=== PATIENT | female | born 1950 | race Caucasian/White ===

== ENCOUNTER 2020-02-25 18:37 | Emergency (ER) | payer MEDICARE, MEDICAID, SELFPAY ==
--- NOTE | ~2020-02-25 | XR_ITS ---
EXAMINATION: XR chest 1V portable DATE: 02/25/2020 19:22 INDICATION: Shortness of breath. Right-sided chest pain. TECHNIQUE: frontal view of the chest was obtained. COMPARISON: None FINDINGS: The lungs are clear with no focal airspace opacities, pulmonary edema, pleural effusion or pneumothor ax. Borderline heart size conifer AP technique. Dual lead pacemaker seen with leads projecting over t he expected locations of the right atrium and right ventricle. Visualized bones and soft tissues ar e unremarkable. IMPRESSION: 1. Borderline heart size. No other acute cardiopulmonary disease. Reviewed, dictated and finalized at location A. DUMPING EQUIPMENT OPERATOR
[2020-02-25 18:39] VITALS: BP 126/94; PULSE 100; RESP 16; TEMP 36.7; O2SAT 96
--- NOTE | 2020-02-25 18:47 | ECG_ITS ---
Measurements Intervals [place] Rate: 101 P: 47 CA: 167 QRS: -1 QRSD: 94 T: 47 QT: 343 QTc: 446 Interpretive Statements SINUS TACHYCARDIA INFERIOR INFARCT, AGE INDETERMINATE ABNORMAL ECG Electronically Signed On 02-26-2020 6:48:31 BIOLOGY TUTOR by Tello Baker D.O.
[2020-02-25 19:00] VITALS: BP 126/94; PULSE 102; RESP 17; O2SAT 97
[2020-02-25 19:13] LABS: Basophils Absolute Auto 0.1 K/mm3 (0.0-0.1); Basophils Percent Auto 0.4 % (0.2-1.2); Eosinophils Absolute Auto 0.5 K/mm3 (0-0.3); Eosinophils Percent Auto 3.4 % (0-4.4); Hematocrit 44.4 % (37.0-47.0); Hemoglobin 14.1 g/dL (12.0-15.0); Immature Granulocyte Absolute 0.04 K/mm3 (0.00-0.031); Immature Granulocyte Percent A 0.3 % (0-0.5); Lymphocytes Absolute Auto 3.11 K/mm3 (0.9-3.2); Lymphocytes Percent Auto 21.9 % (18.3-44.2); Mean Corpuscular HGB Conc 31.8 g/dl (32-36); Mean Corpuscular Hemoglobin 29.3 pg (26-34); Mean Corpuscular Volume 92.1 fl (80-100); Mean Platelet Volume 10.7 fl (7.4-10.4); Monocytes Percent Auto 7.1 % (2.6-8.5); Neutrophils Absolute Auto 9.5 K/mm3 (1.3-6.7); Neutrophils Percent Auto 66.9 % (45.5-73.1); Platelet Count Result 272 k/mm3 (150-375); Red Blood Count 4.82 M/mm3 (4.2-5.4); Red Cell Distribution Width 12.6 % (11.5-14.5); White Blood Count 14.2 K/mm3 (4.5-10.0)
[2020-02-25 19:21] LABS: INR 0.9; Prothrombin Time 12.8 Seconds (11.1-14.7)
[2020-02-25 19:56] LABS: NT Pro B Type Natriuretic Pept 65 PG/ML (5-100)
[2020-02-25 20:13] LABS: Alanine Aminotransferase 19 U/L (4-35); Alkaline Phosphatase 149 U/L (38-126); Anion Gap 14 mmol/L (8-16); Aspartate Amino Transferase 51 U/L (14-36); Blood Urea Nitrogen 22 mg/dL (7-17); Calcium 9.4 mg/dL (8.4-10.2); Carbon Dioxide 16 mmol/L (22-30); Chloride 110 mmol/L (98-107); Estimated CRCL calculation 60 ml/min; Estimated Glomerular Filt Rate > 60; Glucose 183 mg/dL (65-105); Potassium 3.9 mmol/L (3.4-5.0); Sodium 140 mmol/L (137-145)
[2020-02-25 20:15] VITALS: PULSE 100; RESP 18; O2SAT 94
[2020-02-25 20:27] LABS: Troponin I < 0.012 ng/mL (0.000-0.034)
--- NOTE | 2020-02-25 20:56 | ED.CHESTPAIN ---
HPI - Chest Pain General Chief Complaint: Chest Pain Stated Complaint: right side chest pain Time Seen by Provider: 02/25/20 18:43 Source: patient Mode of arrival: EMS Limitations: no limitations History of Present Illness HPI narrative: 69-year-old with a history of hypertension, diabetes, anxiety disorder here with complaints of chest pain started few hours ago after eating her hamburger and Far[place] fries. Patient states that she had weird pain in the chest which radiated to left side of her jaw. She also complains of some shortness of breath. She presently denies any pain MD complaint: chest pain Onset (ago): hour(s) (1) Prior episodes: No Onset: during rest Pain location: right chest Pain radiation: jaw/teeth Severity: moderate Quality: heaviness Relieving factors: nothing Exacerbating factors: nothing Risk Factors Coronary artery disease risk factors: none, diabetes and hypertension Thoracic aortic dissection risk factors: none Related Data Home Medications Medication Instructions Recorded Confirmed atorvastatin 40 mg PO DAILY 02/25/20 empagliflozin [Jardiance] 10 mg PO DAILY 02/25/20 ezetimibe 10 mg PO DAILY 02/25/20 insulin glargine [Basaglar KwikPen 45 unit SUBCUT HS 02/25/20 U-100 Insulin] lisinopril 20 mg PO DAILY 02/25/20 metformin 500 mg PO BID 02/25/20 omeprazole 20 mg PO DAILY 02/25/20 prednisone 5 mg PO DAILY 02/25/20 Allergies Allergy/AdvReac Type Severity Reaction Status Date / Time codeine Allergy Other Verified 02/25/20 18:51 dextromethorphan Allergy Other Verified 02/25/20 18:51 latex Allergy Rash Verified 02/25/20 18:51 Review of Systems Review of Systems: All systems reviewed & are unremarkable except as noted in HPI and below Constitutional: Constitutional: Reports no additional constitutional complaints Eyes: Eyes: Reports no additional eye complaints ENT: Reports system reviewed and no additional complaints, except as documented Cardiovascular: Cardiovascular: Reports as per HPI Respiratory: Respiratory: Reports as per HPI Gastrointestinal: Gastrointestinal: Reports no additional gastrointestinal complaints Musculoskeletal: Musculoskeletal: Reports no additional musculoskeletal complaints Neurologic: Reports system reviewed and no additional complaints, except as documented PMFSH Social History Social History Gender identity (if verbalized by the patient): Female Exam Narrative: Exam Narrative: GENERAL: Well-appearing, well-nourished, and in no acute distress. HEAD: Normocephalic, atraumatic. EYES: PERRLA and EOMI. NECK: Supple. CHEST: Clear to auscultation. No respiratory distress. HEART: Regular rate and rhythm. No murmur heard. Normal peripheral pulses. ABDOMEN: Soft, nontender, nondistended, normal active bowel sounds. EXTREMITIES: Normal range of motion. No edema. SKIN: Warm, dry, no rash. NEURO: No focal deficits. Alert and oriented x3. PSYCH: Normal mood and affect. Course Course Emergency Course: Patient remained asymptomatic throughout her stay. Discussed labs and EKG findings with the patient and the family. I also discussed with Dr. Paul's nurse practitioner Lucy, they will follow-up in her office tomorrow. Patient does feel comfortable going home Vital Signs Vital signs: Vital Signs Temperature 36.7 C 02/25/20 18:39 Pulse Rate 100 02/25/20 18:39 Respiratory Rate 16 02/25/20 18:39 Blood Pressure 126/94 H 02/25/20 18:39 Pulse Oximetry 96 02/25/20 18:39 Temperature 36.7 C 02/25/20 18:39 Pulse Rate 100 02/25/20 18:39 Respiratory Rate 16 02/25/20 18:39 Blood Pressure 126/94 H 02/25/20 18:39 Pulse Oximetry 96 02/25/20 18:39 MDM - Chest Pain Differential Diagnosis Differential diagnosis: Likely unstable angina pectoris, atypical chest pain and chest pain Lab Data Result diagrams: 02/25/20 19:07 02/25/20 19:07 Labs: Lab Results 02/25/20 02/25/20 02/25/20 Jake
[2020-02-25 21:01] VITALS: BP 115/62; PULSE 92; RESP 14; O2SAT 96
== END 2020-02-25 21:18 | disposition home or self-care (01) ==
PROVIDERS: Emergency Provider Family Medicine
DX: R07.9 Chest pain, unspecified (principal); R00.0 Tachycardia, unspecified; I10 Essential (primary) hypertension; E11.9 Type 2 diabetes mellitus without complications; Z79.4 Long term (current) use of insulin; F41.9 Anxiety disorder, unspecified; R06.02 Shortness of breath
CPT/HCPCS: 36415; 71045; 80053; 83880; 84484; 85025; 85610; 93005; 99284

== ENCOUNTER 2021-07-20 14:45 | Outpatient (RCR) | payer OTHER, SELFPAY ==
--- NOTE | 2021-06-21 14:31 | PTOPEVAL ---
PHYSICAL THERAPY INITIAL EVALUATION. Thank you for referring Shawnee Mon to [facility].? The patient is scheduled to be seen for therapy? 2x/week for 4 weeks. Please review, sign, date and return this plan of care DAYNA. I agree with and certify that the following plan of care is medically necessary. Referring Physician Date Attending Provider: Coco Butcher, PA *PT Outpatient Evaluation Start: 06/21/21 Evaluation Information Diagnosis bilateral knee pain Onset chronic Additional Evaluation Detail Pt ambulates into the clinic today with a shuffling gait pattern, decreased foot clearance, and decreased gait speed. Subjective Information Pt states for the last couple Query Text:As Reported By Patient/ of years she has had Family difficultly getting in and out of her chair and walking on uneven surfaces and climbing stairs. Now she has difficultly walking on level and smooth surfaces without her knees giving out on her. Her left knee started first and is worse, now the R knee is bothering her. She declines any falls in the last 6 months. She ordered a walker and is waiting to receive it. Pain Assessment Self Report Pain Assessment Bilateral Knee(s) Reported Pain Level 0 Lowest Pain Intensity 0 Greatest Pain Intensity 2 Pain Aggravating Factors Prolonged Position,Stair Climbing,Walking,Weight Bearing/Standing Lower Extremity Range of Motion Gross Lower Extremity Range of Motion R knee 0-6-115 Comments L knee 0-8-120 Lower Extremity Muscle Strength Testing Gross Lower Extremity Strength B hip flexion 4/5 B knee flexion 3+/5 B knee extension 4-/5 B ankles df/pf 4/5 B glute med 2/5 - unable to perform without hip flexion, unable to hold test position Muscle Length Testing Two-Joint Hip Flexor Shortened Muscles Short (R) Rectus Femoris,Short (L) Rectus Femoris Balance Assessment Time Up Go (TUG) Timed Up and Go Test (TUG) (Seconds) 13 Assistive Devices None 5 Time Sit to Stand Time in Seconds 21 5 Time Sit to Stand Comments with the use of UEs, unable t
--- NOTE | 2021-07-04 13:28 | PCPTNOTE ---
Patient called & cancelled scheduled appointment this date, she gave no reason as to why.
--- NOTE | 2021-07-20 15:25 | PTOPEVAL ---
PHYSICAL THERAPY PROGRESS REPORT AND DISCHARGE SUMMARY. Thank you for referring Shawnee Mon to [facility].? The patient is to be discharged from skilled physical therapy services are this time. Please review, sign, date and return this plan of care DAYNA. I agree with and certify that the following plan of care is medically necessary. Referring Physician Date Attending Provider: Coco Butcher, PA Evaluation Information Diagnosis bilateral knee pain Onset chronic Subjective Information Pt states she feels like Query Text:As Reported By Patient/ [employer]rpay is helping. She states Family she feels her legs, particularly her knees are getting stronger. She states she has less difficultly getting out of a chair. Pt states she walks 10 mins at a time 3-4 times a day. Pain Assessment Pain Score Pain Score 0: Self Report Lower Extremity Range of Motion Gross Lower Extremity Range of Motion R knee 0-6-115 Comments L knee 0-8-122 Lower Extremity Muscle Strength Testing Gross Lower Extremity Strength B hip flexion 4+/5 B knee flexion 4/5 B knee extension 4/5 B ankles df/pf 4/5 B glute med 3/5 B hip extension 3/5 Muscle Length Testing Two-Joint Hip Flexor Shortened Muscles Short (R) Rectus Femoris,Short (L) Rectus Femoris Balance Assessment Time Up Go (TUG) Timed Up and Go Test (TUG) (Seconds) 11 Assistive Devices None Comments Initially: 13s 07/20/21: 11s 5 Time Sit to Stand Time in Seconds 19 5 Time Sit to Stand Comments Initially: 21s with the use of Query Text:Normative Data: If Greater UEs, unable to complete Than 15 Seconds, 74% Increase Risk for without the use of UEs Recurrent Falls 07/20/21: 19s without the use of UEs Gait Assessment Other Gait Observations Demonstrates normal gait speed and good foot clearance. 2 Minute Walk Total Distance Walked (feet) 440 2 Minute Walk Gait Speed Score (feet/sec) 3.66 second) 2 Minute Walk Test Comments Initially: 390ft (3.25ft/sec) 07/20/21: 440ft (3.66ft/sec) Stair Climbing Assessment Stair Climbing Comments Requires the use of B railings in order to safety complete. PT Clinical Summary Shawnee presents to therapy today for her progress report following 6 visits of therapy.
== END 2021-07-21 12:54 | disposition home or self-care (01) ==
LOC: ANHPT 14:45
PROVIDERS: PCP Physician Assistant; Visit Provider Physician Assistant
DX: M25.561 Pain in right knee (principal)
CPT/HCPCS: 97110; 97112; 97140; 97161; 97530

== ENCOUNTER 2022-01-23 22:26 | Inpatient (IN) | payer OTHER, SELFPAY ==
--- NOTE | ~2022-01-23 | XR_ITS ---
EXAMINATION: XR abdomen/kub 1V DATE: 01/24/2022 11:59 INDICATION: Constipation. TECHNIQUE: A supine view of the abdomen was obtained. COMPARISON: None. FINDINGS: There are no dilated loops of bowel. There is a moderate volume of stool in the colon. IMPRESSION: 1. Normal bowel gas pattern. Reviewed, dictated and finalized at location A.
--- NOTE | ~2022-01-23 | CT_ITS ---
EXAMINATION: CT brain wo con DATE: 01/23/2022 23:50 INDICATION: Altered mental status. TECHNIQUE: Computed tomography (CT) of the head was performed without intravenous contrast. The mA wa s adjusted according to patient size. Iterative reconstruction technique was employed. The dose-lengt h product was 681.00 mGy-cm. COMPARISON: None FINDINGS: There are scattered areas of low attenuation in the cerebral white matter, which is within normal limits for the patient's age. There is no intracranial hemorrhage, acute infarction, or abnorm al intracranial mass lesion. The ventricles are normal in size. There is mucosal thickening and fluid in the paranasal sinuses. The orbits are normal. The mastoid air cells are normal. There is posterio r scalp soft tissue swelling. IMPRESSION: 1. Normal aging brain. Reviewed, dictated and finalized at location A. IMPRESSION: 1. Normal aging brain.
--- NOTE | ~2022-01-23 | CT_ITS ---
EXAMINATION: CT brain wo con DATE: 01/24/2022 21:59 INDICATION: change in LOC . TECHNIQUE: Computed tomography (CT) of the head was performed without intravenous contrast. The mA wa s adjusted according to patient size. Iterative reconstruction technique was employed. The dose-lengt h product was 681.00 mGy-cm. COMPARISON: 01/23/2022 FINDINGS: No acute intracranial hemorrhage or extra-axial fluid collection. No hydrocephalus, mass, or herniation. No acute ischemic infarct. Unremarkable dural venous sinus attenuation. No acute osseous abnormality. Posterior scalp and neck subcutaneous edema. Air-fluid levels in the bilateral maxillary sinuses, ethmoid air cells, and sphenoid sinus. The remai reji aerated spaces are clear. Mild atrophy and chronic white matter change. Atherosclerotic intracranial calcification. IMPRESSION: No acute intracranial process. Acute sinusitis. Reviewed, dictated and finalized at location K.
--- NOTE | ~2022-01-23 | XR_ITS ---
EXAMINATION: XR barium swallow modified DATE: 01/28/2022 10:50 INDICATION: Dysphagia. Rule out silent aspiration. TECHNIQUE: The patient was given barium-containing material of multiple consistencies to swallow by jovan granados speech pathologist while I performed fluoroscopy. Dose-area product was 1.398 Gy-cm2. 2.5 minutes fluoroscopy time FINDINGS: Oral Stage: Reduced labial seal and lip tension Reduced lingual movement Pharyngeal Phase: Reduced laryngeal elevation and adduction Reduced tongue base retraction and pharyngeal squeeze Vallecular, perform sinus and pharyngeal residue Laryngeal penetration Cervical/Esophageal Stage: Within functional limits IMPRESSION: Modified esophagram findings as above. Please refer to the speech therapy [facility]. Reviewed, dictated and finalized at Location A. Reviewed, dictated and finalized at location A. FACTURING OPERATOR IMPRESSION: Modified esophagram findings as above. Please refer to the speech t herapy report for specific recommendations.
--- NOTE | ~2022-01-23 | XR_ITS ---
EXAMINATION: XR chest 1V portable DATE: 01/24/2022 04:58 INDICATION: COVID-19 pneumonia. TECHNIQUE: A single frontal view of the chest was obtained. COMPARISON: Chest single view 02/25/2020 FINDINGS: A skin fold overlies right hemithorax. There are mild airspace opacities in the mid and low er lung zones. No pleural effusion or pneumothorax. Cardiomegaly is noted. There is a left chest wall pacer with leads in the right atrium and right ventricle. IMPRESSION: 1. Mild airspace opacities in the mid and lower lung zones, consistent with atelectasis versus pneumo stacy. 2. Cardiomegaly. Reviewed, dictated and finalized at location A. IMPRESSION: 1. Mild airspace opacities in the mid and lower lung zones, consistent with ate lectasis versus pneumonia. 2. Cardiomegaly.
--- NOTE | ~2022-01-23 | XR_ITS ---
EXAMINATION: XR hip LT 2V w AP pelvis DATE: 01/24/2022 02:24 INDICATION: Hip pain. TECHNIQUE: An anteroposterior view of the pelvis and 2 views of left hip were obtained. COMPARISON: None. FINDINGS: There is lumbar dextrocurvature and moderate spondylosis. No fracture. There is mild osteoa rthritis of the hips. IMPRESSION: 1. Mild osteoarthritis of the hips. Reviewed, dictated and finalized at location A.
[2022-01-23 22:24] VITALS: BP 135/119; PULSE 172; RESP 27; TEMP 36.6
--- NOTE | 2022-01-23 22:29 | ECG_ITS ---
Measurements Intervals [place] Rate: 173 P: [place]: 0 QRS: 15 QRSD: 124 T: -21 QT: 272 QTc: 462 Interpretive Statements ATRIAL FLUTTER/TACHYCARDIA WITH RAPID VENTRICULAR RESPONSE BASELINE ARTIFACT- I, II, III, AVR, AVL, AVF, V1-V3 ABNORMAL ECG COMPARED TO ECG 02/25/2020 18:42:45 ATRIAL FLUTTER/TACHYCARDIA WITH RAPID VENTRICULAR RESPONSE NOW PRESENT Electronically Signed On 01-24-2022 12:54:04 CDT by Tello Baker D.O.
[2022-01-23] MEDS: SODIUM CHLORIDE 0.9% IV 2,200 ML/1,000 ML BAG 999 ML IV CONT ×2 (23:08→23:46)
[2022-01-23 23:10] LABS: Basophils Percent Auto 0.2 % (0.2-1.2); Hematocrit 47.5 % (37.0-47.0); Hemoglobin 15.4 g/dL (12.0-15.0); Immature Granulocyte Absolute 0.07 K/mm3 (0.00-0.031); Immature Granulocyte Percent A 0.5 % (0-0.5); Lymphocytes Absolute Auto 0.77 K/mm3 (0.9-3.2); Lymphocytes Percent Auto 5.4 % (18.3-44.2); Mean Corpuscular HGB Conc 32.4 g/dl (32-36); Mean Corpuscular Hemoglobin 29.1 pg (26-34); Mean Corpuscular Volume 89.8 fl (80-100); Monocytes Absolute Auto 1.1 K/mm3 (0.1-0.6); Monocytes Percent Auto 7.9 % (2.6-8.5); Neutrophils Absolute Auto 12.3 K/mm3 (1.3-6.7); Platelet Count Result 223 k/mm3 (150-375); Red Blood Count 5.29 M/mm3 (4.2-5.4); Red Cell Distribution Width 14.2 % (11.5-14.5); White Blood Count 14.3 K/mm3 (4.5-10.0)
[2022-01-23 23:21] LABS: Lactic Acid Reflex 2.8 mmol/L (0.7-2.0)
[2022-01-23 23:24] LABS: Alanine Aminotransferase 142 U/L (6-35); Albumin Level 3.9 g/dL (3.5-5.1); Alkaline Phosphatase 91 U/L (38-126); Anion Gap 20 mmol/L (8-16); Aspartate Amino Transferase 465 U/L (14-36); Blood Urea Nitrogen 54 mg/dL (7-17); Calcium 8.6 mg/dL (8.4-10.2); Carbon Dioxide 16 mmol/L (22-30); Chloride 103 mmol/L (98-107); Estimated CRCL calculation 29 ml/min; Estimated Glomerular Filt Rate 34; Glucose 202 mg/dL (65-110); Potassium 4.2 mmol/L (3.4-5.0); Sodium 139 mmol/L (137-145)
[2022-01-23 23:34] LABS: INR 1.1; Prothrombin Time 13.3 Seconds (11.1-14.7)
[2022-01-23 23:35] LABS: Partial Thromboplastin Time 27.4 SECONDS (22.3-36.8)
[2022-01-23 23:36] LABS: CRP 21.9 mg/dL (<1.0); Troponin I 0.659 ng/mL (0.000-0.034)
[2022-01-23 23:51] VITALS: PULSE 169; RESP 25
[2022-01-23 23:57] LABS: Creatine Kinase 14274 U/L (30-135)
[2022-01-24] VITALS (62 sets, daily range): BP systolic 82–147; BP diastolic 26–90; PULSE 92–170; RESP 21–33; TEMP 37.1–39.1; O2SAT 83–99; BMI 24.5
--- NOTE | 2022-01-24 | ECHO_ITS ---
Patient Info Name: Shawnee Mon Age: 71 years : 1950 Gender: Female Ht: 66 in Wt: 158 lbs BSA: 1.84 m2 HR: 118 bpm BP: 115 / 67 mmHg Heart Rhythm: Tachycardia Exam Date: 01/24/2022 11:19 AM Exam Location: [facility] Patient Status: Inpatient Admit Date: 01/24/2022 Staff Ordering Physician: Jose Osborne MD [employer] Car[employer] Operator: Vidal Kang, ROMANCS, RT Attending Provider: Jose Osborne MD Referring Physician: India SERRANO; Exam Type: CA echo doppler color flow Study Info Indications I50.9 - Heart failure, unspecified Complete two-dimensional, color flow and Doppler transthoracic echocardiogram is performed. Summary 1. Complete two-dimensional, color flow and Doppler transthoracic echocardiogram is performed. 2. Left ventricular systolic function is hyperdynamic, estimated at >70%. 3. There is mildly increased left ventricular wall thickness. 4. Right ventricular systolic function is normal. 5. There is mild tricuspid valve regurgitation. Left Ventricle Left ventricular chamber dimension is normal. Left ventricular systolic function is hyperdynamic, estimated at >70%. There is mildly increased left ventricular wall thickness. Right Ventricle Right ventricular chamber dimension is normal. Right ventricular systolic function is normal. Left Atria Left atrial chamber dimension is normal. Right Atria Right atrial chamber dimension is normal. Atrial Septum Intact interatrial septum visualized by color flow imaging. Aortic Valve The aortic valve is probable trileaflet. There is mild aortic valve sclerosis. There is no aortic valve stenosis. There is no aortic valve regurgitation. Pulmonic Valve The pulmonic valve is not well visualized. Mitral Valve The mitral valve has normal leaflets. There is no mitral valve stenosis. There is trace mitral valve regurgitation. Tricuspid Valve The tricuspid valve leaflets are normal. There is no significant tricuspid valve stenosis. There is mild tricuspid valve regurgitation. Pericardium/Pleural There is no pericardial effusion. Inferior Vena Cava Dilated inferior vena cava with >50% collapse upon inspiration consistent with elevated right atrial pressure, 8 mmHg. Aorta The aortic root size at the sinus of Valsalva is normal. Left Ventricular Outflow Tract Name Value Normal LVOT 2D LVOT Diameter 1.9 cm LVOT Doppler LVOT Peak Gradient 4 mmHg LVOT Mean Gradient 2 mmHg LVOT VTI 19 cm LVOT VTI/AV VTI Ratio 0.7 LVOT Stroke Volume 53 ml LVOT CO 3.4 l/min LVOT CI 1.9 l/min/m2 Mitral Valve Name Value Normal MV Doppler MV Decel [place]
[2022-01-24 00:10] LABS: Bacteria Urine Trace /hpf; Mucus Urine Rare /lpf; RBC Urine 0-2 /hpf (0-2); WBC Urine 0-3 /hpf
[2022-01-24 00:19] LABS: Add Urine Microscopic? YES; Appearance Urine Clear (Clear); Bilirubin Urine 2+ (Negative); Blood Urine 3+ (Negative); Color Urine Yellow (Yellow); Glucose Urine UA 2+ mg/dL (Negative); Ketones Urine 3+ mg/dL (Negative); Leukocyte Esterase Ur Negative LEU/UL (Negative); Nitrate Urine Negative (Negative); Protein Urine 3+ mg/dL (Negative); Specific Grav Ur >= 1.030 (1.001-1.035); Urobilinogen Urine 0.2 mg/dL (<2.0)
[2022-01-24 00:48] LABS: Influenza A QL RT-PCR Negative (Negative); Influenza B QL RT-PCR Negative (Negative); SARS-CoV-2 RNA PCR Positive
[2022-01-24] MEDS: SODIUM CHLORIDE 0.9% IV 2,200 ML/1,000 ML BAG 999 ML IV CONT (01:00)
[2022-01-24] MEDS: SODIUM CHLORIDE 0.9% IV 1,000 ML 999 ML IV CONT ×2 (01:00→02:29)
--- NOTE | 2022-01-24 01:17 | ED.WEAKNESS ---
HPI - Weakness General Chief complaint: Weakness Stated complaint: ams on ground since saturday, l sided hip pain Time Seen by Provider: 01/23/22 22:33 History of Present Illness HPI Narrative: Patient is a 71-year-old female who presents to the ER with weakness. Patient fell 5 days ago and has been laying on the floor since then. Son called for wellness check and she was found. Patient is extremely weak but is technically oriented x4. She is unsure why she fell. Reports that may be related to sinus congestion. She is reporting no pain to me but reported pain to the left hip to someone else. Due to patient's weakness she has difficulty participating in history taking. Related Data Home Medications Medication Instructions Recorded Confirmed atorvastatin 40 mg tablet 40 mg PO DAILY 02/25/20 empagliflozin 10 mg tablet 10 mg PO DAILY 02/25/20 (Jardiance) ezetimibe 10 mg tablet 10 mg PO DAILY 02/25/20 insulin glargine 100 unit/mL (3 45 unit subcut HS 02/25/20 mL) subcutaneous pen (Basaglar KwikPen U-100 Insulin) lisinopril 20 mg tablet 20 mg PO DAILY 02/25/20 metformin 500 mg tablet 500 mg PO BID 02/25/20 omeprazole 20 mg capsule,delayed 20 mg PO DAILY 02/25/20 release prednisone 5 mg tablet 5 mg PO DAILY 02/25/20 Allergies Allergy/AdvReac Type Severity Reaction Status Date / Time codeine Allergy Other Verified 02/25/20 18:51 dextromethorphan Allergy Other Verified 02/25/20 18:51 latex Allergy Rash Verified 02/25/20 18:51 Review of Systems Review of Systems: ROS unobtainable: Yes unobtainable due to medical condition PMFSH Past Medical History Medical History (Updated 01/24/22 @ 02:13 by Artie Bowen MD) Diabetes GERD (gastroesophageal reflux disease) Hyperlipidemia Hypertension Surgical History Surgical History (Updated 01/24/22 @ 02:08 by Artie Bowen MD) History of permanent cardiac pacemaker placement Social History Social History Gender identity (if verbalized by the patient): Female Exam Narrative: GENERAL: Ill-appearing, well-nourished, and in no acute distress. HEAD: Normocephalic, atraumatic. EYES: PERRL and EOMI. ENT: Dry mucous membranes. CHEST: Clear to auscultation. No respiratory distress. HEART: Tachycardic and irregular regular. Normal peripheral pulses. ABDOMEN: Soft, nontender, nondistended. EXTREMITIES: Normal range of motion. No edema. SKIN: Warm, dry, poor skin turgor, no rash. NEURO: Alert and oriented x3. Course Course Emergency Course: Admit to hospitalist service. Patient aggressively hydrated with 3 L IV fluid. Blood pressure then normalized and so small dose of diltiazem given to help with rapid heart rate. Patient does appear to be in A. fib with RVR. Blood pressure then dropped again so we will give additional fluid bolus. Patient appears very dry clinically and on lab work. Will need aggressive fluid resuscitation due to rhabdomyolysis. Patient will be started on heparin due to elevated troponin. Hospitalist service will decide how best to treat patient's COVID-19. Vital Signs Vital signs: Vital Signs Temperature 97.8 F 01/23/22 22:24 Pulse Rate 172 H 01/23/22 22:24 Respiratory Rate 27 H 01/23/22 22:24 Blood Pressure 135/119 H 01/23/22 22:24 Temperature 97.8 F 01/23/22 22:24 Pulse Rate 171 H 01/24/22 03:52 Respiratory Rate 25 H 01/24/22 03:45 Blood Pressure 122/73 01/24/22 03:52 Pulse Oximetry 92 01/24/22 03:45 Oxygen Delivery Nasal Cannula 01/24/22 02:10 Oxygen Flow Rate 2 01/24/22 02:10 MDM - Weakness Lab Data Result diagrams: 01/23/22 23:03 01/23/22 23:03 Labs: Lab Results 01/23/22 01/23/22 01/23/22 Range/Units 23:03 23:03 23:03 WBC 14.3 H (4.5-10.0) K/mm3 RBC 5.29 (4.2-5.4) M/mm3 Hgb 15.4 H (12.0-15.0) g/dL Hct 47.5 H (37.0-47.0) % MCV 89.8 (80-100) fl MCH 29.1 (26-34) pg MCHC 32.4 (32-36) g/dl
[2022-01-24] MEDS: dilTIAZem HCl INJ 25 MG/5 ML VIAL 10 MG IV PUSH (01:38)
[2022-01-24] MEDS: HEPARIN SOD/D5W 100 UNITS/ML 25,000 UNITS/250 ML BAG 8 UNITS IV CONT (02:00)
[2022-01-24] MEDS: HEPARIN SODIUM 5,000 UNITS/ML VIAL 4000 UNITS IV PUSH (02:00)
[2022-01-24 02:08] LABS: Reflex Lactic Acid Yes or No Add Lactic
--- NOTE | 2022-01-24 03:05 | PC.NURSE ---
Assumed pt care from MAURICE Espinoza
--- NOTE | 2022-01-24 04:09 | PM.IMHP ---
H&P: HPI History of Present Illness Date/Time: 01/24/22 04:09 Chief Complaint: fall Narrative: This is a 71-year-old female with past medical history significant for hypertension, type 2 diabetes mellitus, GERD, dyslipidemia. Patient was found down after a well checkup can not give history she was brought to emergency room for evaluation last time H she was seen and her normal was Saturday. preliminary workup was significant for elevated CPK at 14,000, troponin 0.689, creatinine 1.5 BUN 54 a COVID test was positive. Patient also found to be tachycardia. Patient has been admitted for further evaluation management and treatment. Review of Systems Review of Systems: ROS unobtainable: Yes unobtainable due to mental status ( Obtundation, lethargy) PMFSH Past Medical History Medical History (Updated 01/24/22 @ 04:45 by Jose Osborne MD) Diabetes GERD (gastroesophageal reflux disease) Hyperlipidemia Hypertension Surgical History Surgical History (Updated 01/24/22 @ 02:08 by Artie Bowen MD) History of permanent cardiac pacemaker placement Social History Social History Gender identity (if verbalized by the patient): Female Meds Home Medications and Allergies Home Medications Medication Instructions Recorded Confirmed Type atorvastatin 40 mg tablet 40 mg PO DAILY 02/25/20 History empagliflozin 10 mg tablet 10 mg PO DAILY 02/25/20 History (Jardiance) ezetimibe 10 mg tablet 10 mg PO DAILY 02/25/20 History insulin glargine 100 unit/mL (3 45 unit subcut HS 02/25/20 History mL) subcutaneous pen (Basaglar KwikPen U-100 Insulin) lisinopril 20 mg tablet 20 mg PO DAILY 02/25/20 History metformin 500 mg tablet 500 mg PO BID 02/25/20 History omeprazole 20 mg capsule,delayed 20 mg PO DAILY 02/25/20 History release prednisone 5 mg tablet 5 mg PO DAILY 02/25/20 History Allergies Allergy/AdvReac Type Severity Reaction Status Date / Time codeine Allergy Other Verified 02/25/20 18:51 dextromethorphan Allergy Other Verified 02/25/20 18:51 latex Allergy Rash Verified 02/25/20 18:51 Vital Signs Vital Signs - 24 hr 01/23/22 22:24 01/23/22 23:51 01/24/22 00:00 Temperature 97.8 F Pulse Rate 172 H 169 H 159 H Respiratory Rate 27 H 25 H 26 H Blood Pressure 135/119 H Pulse Oximetry Oxygen Delivery Oxygen Flow Rate 01/24/22 00:02 01/24/22 00:03 01/24/22 00:15 Temperature Pulse Rate 170 H 170 H 167 H Respiratory Rate 26 H 27 H 21 H Blood Pressure 86/65 L Pulse Oximetry 94 Oxygen Delivery Oxygen Flow Rate 01/24/22 00:41 01/24/22 00:45 01/24/22 00:47 Temperature Pulse Rate 156 H 169 H 164 H Respiratory Rate 24 H 25 H 23 H Blood Pressure 104/38 L Pulse Oximetry Oxygen Delivery Oxygen Flow Rate 01/24/22 01:06 01/24/22 01:38 01/24/22 01:57 Temperature Pulse Rate 144 H 168 H 143 H Respiratory Rate 26 H Blood Pressure 91/57 L 131/52 L 90/26 L Pulse Oximetry 94 Oxygen Delivery Oxygen Flow Rate 01/24/22 02:10 01/24/22 00:48 01/24/22 01:23 Temperature Pulse Rate 170 H 162 H Respiratory Rate 27 H 25 H Blood Pressure Pulse Oximetry 94 Oxygen Delivery Nasal Cannula Oxygen Flow Rate 2 01/24/22 01:30 01/24/22 01:32 01/24/22 01:44 Temperature Pulse Rate 157 H Respiratory Rate 30 H 26 H 28 H Blood Pressure 131/52 L Pulse Oximetry 83 L Oxygen Delivery Oxygen Flow Rate 01/24/22 01:45 01/24/22 01:46 01/24/22 01:47 Temperature Pulse Rate 136 H 117 H 123 H Respiratory Rate 25 H 27 H 21 H Blood Pressure Pulse Oximetry 83 L Oxygen Delivery Oxygen Flow Rate 01/24/22 01:53 01/24/22 01:56 01/24/22 02:00 Temperature Pulse Rate Respiratory Rate 28 H 28 H 22 H Blood Pressure 90/26 L Pulse Oximetry 83 L Oxygen Delivery Oxygen Flow Rate 01/24/22 02:03 01/24/22 02:38 01/24/22 02:47 Temperature Pulse Rate 165 H Respiratory
[2022-01-24] MEDS: SODIUM CHLORIDE 0.9% IV 1,000 ML 200 ML IV CONT ×3 (04:23→12:44)
[2022-01-24 06:12] LABS: Troponin I 0.786 ng/mL (0.000-0.034)
[2022-01-24] MEDS: dilTIAZem HCl INJ 25 MG/5 ML VIAL 20 MG IV PUSH (07:04)
--- NOTE | 2022-01-24 07:19 | PC.NURSE ---
assumed care of pt from MAURICE Gill. Pt has 102.4 temp at this time. Called Hospitalist for orders. VORB for 1000 mg IV tylenol.
[2022-01-24 07:40] LABS: Lactic Acid Reflex 1.6 mmol/L (0.7-2.0)
[2022-01-24 07:59] LABS: Glucose Point of Care 119 mg/dl (65-105)
[2022-01-24] MEDS: dilTIAZem 100 MG/100 ML 100 MG/100 ML BAG IV CONT ×2 (11:00→22:55)
--- NOTE | 2022-01-24 11:54 | PC.NURSE ---
Spoke with Dr. Medrano. He would like cardiology paged to come and see pt. Also would like a KUB to check for blockage and then give fleet enema
--- NOTE | 2022-01-24 13:17 | PC.NURSE ---
Francoise Hayes discovered the Caridizem gtt that was started by night court magistrate FRANCOISE Gill was not mixed in the 100ml bag of NS that was infusing. Drip was stopped and a new gtt prepared and started at the starting rate of 5mg/ml. Dr. Medrano was notified and a medication incident was completed. Documentation of has been updated to reflect that the initial infusion of Cardizem was not given.
[2022-01-24 13:20] LABS: Hematocrit 42.4 % (37.0-47.0); Mean Corpuscular HGB Conc 30.7 g/dl (32-36); Mean Corpuscular Hemoglobin 29.1 pg (26-34); Mean Corpuscular Volume 94.9 fl (80-100); Mean Platelet Volume 11.8 fl (7.4-10.4); Platelet Count Result 175 k/mm3 (150-375); Red Blood Count 4.47 M/mm3 (4.2-5.4); Red Cell Distribution Width 14.4 % (11.5-14.5); White Blood Count 8.7 K/mm3 (4.5-10.0)
[2022-01-24 13:38] LABS: Glucose Point of Care 111 mg/dl (65-105)
[2022-01-24 13:43] LABS: Alanine Aminotransferase 118 U/L (6-35); Albumin Level 2.7 g/dL (3.5-5.1); Alkaline Phosphatase 48 U/L (38-126); Anion Gap 14 mmol/L (8-16); Aspartate Amino Transferase 358 U/L (14-36); Bilirubin,Total 1.3 mg/dL (0.2-1.3); Blood Urea Nitrogen 39 mg/dL (7-17); Calcium 6.9 mg/dL (8.4-10.2); Carbon Dioxide 11 mmol/L (22-30); Chloride 116 mmol/L (98-107); Estimated CRCL calculation 53 ml/min; Estimated Glomerular Filt Rate > 60; Glucose 122 mg/dL (65-110); Potassium 4.2 mmol/L (3.4-5.0); Sodium 141 mmol/L (137-145)
[2022-01-24] MEDS: cefTRIAXone 2 GM in SODIUM CHLORIDE 0.9% IV 100 ML 200 ML IVPB (15:19)
--- NOTE | 2022-01-24 16:36 | PM.CNCAR ---
Assessment and Plan Assessment and plan (1) Atrial flutter with rapid ventricular response: Code(s): I48.92 - Unspecified atrial flutter Status: Acute Assessment and Plan: Patient was put on Dilt drip. Currently remains in flutter, however, is rate controlled in the 90s. Would discontinue Dilt drip. At this time, it is unclear if patient is okay to swallow meds, is an aspiration risk right now. Therefore, would avoid PO meds until this is addressed. If patient goes back into RVR, then would do Amiodarone drip. If patient could tolerate oral meds, then would prefer starting Metoprolol. Continue Heparin drip for anticoagulation Echocardiogram 01/24 shows hyperdynamic function with LVEF >70, no significant valvular disease. (2) Elevated troponin: Code(s): R77.8 - Other specified abnormalities of plasma proteins Status: Acute Assessment and Plan: Minimally elevated and flat. In the setting of atrial flutter with RVR, rhabdo, COVID-19+. Does not appear to be ACS. Echocardiogram 01/24 shows hyperdynamic function with LVEF >70, no significant valvular disease, no regional wall motion abnormalities appreciated. (3) History of permanent cardiac pacemaker placement: Code(s): Z95.0 - Presence of cardiac pacemaker Status: Acute Assessment and Plan: Has a Biotronik device, interrogation order placed. History of Present Illness History of Present Illness Consult date/time: 01/24/22 16:36 Requesting physician: Sushma Medrano MD Consult reason: Other (Atrial flutter) Reason For Visit: Rhabdomyolysis,KALEN,NSTEMI,COVID Narrative: This is a 71-year-old female who presented to the ED after being found down. Patient reportedly fell down 5 days ago, and had been on the ground until she was found during a wellness check. Patient sees Dr. Lucio at [facility]. She apparently has a history of atrial fibrillation (not on anticoagulation at home), has a history of SSS s/p Biotronik pacemaker. Patient is currently not able to fully answer questions. She does state her name correctly, her date of correctly, and knows that she is in a hospital. She denies chest pain. However, cannot answer other questions. Initial ECG here showing atrial flutter with RVR, for which we are consulted. Review of Systems Review of Systems: ROS unobtainable: Yes unobtainable due to mental status PENDING SALE TO [facility] Past Medical History Medical History (Updated 01/24/22 @ 16:46 by Mabel Vitale MD) Diabetes GERD (gastroesophageal reflux disease) Hyperlipidemia Hypertension Surgical History Surgical History (Updated 01/24/22 @ 16:46 by Mabel Vitale MD) History of permanent cardiac pacemaker placement Social History Social History Gender identity (if verbalized by the patient): Female Meds Home Medications and Allergies Home Medications Medication Instructions Recorded Confirmed Type atorvastatin 40 mg tablet 40 mg PO DAILY 02/25/20 History empagliflozin 10 mg tablet 10 mg PO DAILY 02/25/20 History (Jardiance) ezetimibe 10 mg tablet 10 mg PO DAILY 02/25/20 History insulin glargine 100 unit/mL (3 45 unit subcut HS 02/25/20 History mL) subcutaneous pen (Basaglar KwikPen U-100 Insulin) metformin 500 mg tablet 500 mg PO BID 02/25/20 History omeprazole 20 mg capsule,delayed 20 mg PO DAILY 02/25/20 History release icosapent ethyl 1 gram capsule g PO 01/24/22 History (Vascepa) lisinopril 10 mg tablet mg 01/24/22 History semaglutide 0.25 mg or 0.5 mg (2 mg subcut 01/24/22 History mg/1.5 mL) subcutaneous pen injector (Ozempic) Allergies Allergy/AdvReac Type Severity Reaction Status Date / Time codeine Allergy Other Verified 01/24/22 14:27 dextromethorphan Allergy Other Verified 01/24/22 14:27 latex Allergy Rash Verified 01/24/22 14:27 Vital Signs Vital Signs - 24 hr 01/23/22 22:24 11
[2022-01-24 16:58] LABS: Glucose Point of Care 131 mg/dl (65-105)
[2022-01-24 17:01] LABS: Alveolar/Arterial O2 Gradient 185.1 mmHg; Base Excess ABG -10.2 mEq/l (+/-2.0); Fractional Inspired Oxygen 40 %; HCO3 ABG 13.9 mEq/l (22.0-26.0); Oxygen Content ABG 16.6 %vol (16.0-22.0); Oxygen Saturation ABG 93.5 % (95.0-100.0); PCO2 ABG 26.2 mmHg (35.0-45.0); PO2 FiO2 Ratio Arterial Blood 1.75 %; Total Hemoglobin 12.7 g/dL (12.0-18.0); pH ABG 7.342 (7.350-7.450)
[2022-01-24 17:04] LABS: Site Drawn RIGHT RADIAL
[2022-01-24 17:05] LABS: Device NASAL CANNULA; Modified Allen's Test Pass
[2022-01-24] MEDS: FUROSEMIDE INJ 40 MG/4 ML VIAL 20 MG IV PUSH ×2 (17:25→19:00)
--- NOTE | 2022-01-24 18:47 | PM.IMPN ---
Progress Note: A&P Assessment and Plan (1) COVID-19: Code(s): U07.1 - COVID-19 Status: Acute Assessment and Plan: admit to IMU supportive care consider adding antibacterial COVID 01/25/2022 interval history: patient is quite somnolent unable to provide review of symptoms or history, patient is positive for COVID-19 started on dexamethasone unable to start remdesivir as patient AST is 10 times higher than normal, upon arrival patient was found to atrial flutter and was started on Cardizem drip, patient rate is trending down seen by automotive instructor and further recommendation to follow, patient was found down by caregivers, not know how long patient was down however has developed rhabdomyolysis rhabdomyolysis upon arrival her CK level were above 8000 patient will vigorously hydrate emergency depart and was given 7 L of the fluid, patient shortness of breath patient was given IV Lasix 40 mg time and will monitor. patient remains clinically stable. (2) Fall: Code(s): W19.XXXA - Unspecified fall, initial encounter Status: Acute Assessment and Plan: bed rest (3) Rhabdomyolysis: Code(s): M62.82 - Rhabdomyolysis Status: Acute Assessment and Plan: IV fluids continue to monitor (4) Non-ST elevated myocardial infarction: Code(s): I21.4 - Non-ST elevation (NSTEMI) myocardial infarction Status: Acute Assessment and Plan: patient on heparin drip continue to monitor cardiology consult echocardiogram in a.m. trend troponins (5) KALEN (acute kidney injury): Code(s): N17.9 - Acute kidney failure, unspecified Status: Acute Assessment and Plan: likely to be pre renal azotemia receiving IV fluids continue to monitor (6) Atrial fibrillation with RVR: Code(s): I48.91 - Unspecified atrial fibrillation Status: Acute Assessment and Plan: on diltiazem drip continue to monitor (7) GERD (gastroesophageal reflux disease): Code(s): K21.9 - Gastro-esophageal reflux disease without esophagitis Status: Acute Assessment and Plan: PPI as needed Subjective Date/time seen: 01/24/22 18:47 HPI-Narrative: ?This is a 71-year-old female with past medical history significant for hypertension, type 2 diabetes mellitus, GERD, dyslipidemia.? Patient was found down after a well checkup can not give history she was brought to emergency room for evaluation last time H she was seen and her normal was Saturday. preliminary workup was significant for elevated CPK at 14,000, troponin 0.689, creatinine 1.5 BUN 54 a COVID test was positive.? Patient also found to be tachycardia.? Patient has been admitted for further evaluation management and treatment. 01/25/2022 interval history: patient is quite somnolent unable to provide review of symptoms or history, patient is positive for COVID-19 started on dexamethasone unable to start remdesivir as patient AST is 10 times higher than normal, upon arrival patient was found to atrial flutter and was started on Cardizem drip, patient rate is trending down seen by automotive instructor and further recommendation to follow, patient was found down by caregivers, not know how long patient was down however has developed rhabdomyolysis rhabdomyolysis upon arrival her CK level were above 8000 patient will vigorously hydrate emergency depart and was given 7 L of the fluid, patient shortness of breath patient was given IV Lasix 40 mg time and will monitor. patient remains clinically stable. Review of Systems Review of Systems: ROS unobtainable: Yes unobtainable due to mental status ( Obtundation, lethargy) Exam Narrative: Patient is comfortable, NAD HEENT: eyes are clear and none icteric LUNGS: poor respiratory effort with rales and rhonchi HEART: RR S1S2 ABD: distended Lower extremities: no edema SKIN: nonjaundiced Neuro: grossly intact. Objective Data Vital Signs Vital Signs: Vital
[2022-01-24 19:43] LABS: IFOB Positive Control Positive; Immunochemical Fecal Occult Bl Positive (N)
[2022-01-24 20:18] LABS: Toxigenic C. Diff NEGATIVE (NEGATIVE)
[2022-01-24 20:41] LABS: Partial Thromboplastin Time 85.2 SECONDS (22.3-36.8)
[2022-01-24 20:51] LABS: Glucose Point of Care 154 mg/dl (65-105)
[2022-01-24 21:14] LABS: Thyroid Stimulating Hormone Reflex 0.195 uIU/mL (0.465-4.68)
[2022-01-25] VITALS (19 sets, daily range): BP systolic 99–143; BP diastolic 52–65; PULSE 89–120; RESP 21–31; TEMP 36.1–38; O2SAT 94–99; BMI 29.7
[2022-01-25 00:28] LABS: Troponin I 0.507 ng/mL (0.000-0.034)
[2022-01-25 00:44] LABS: Creatine Kinase > 8000 U/L (30-135)
[2022-01-25 04:53] LABS: Free T4 Free Thyroxine Reflex 1.62 ng/dL (0.78-2.19)
[2022-01-25 05:13] LABS: Basophils Percent Auto 0.3 % (0.2-1.2); Hematocrit 37.3 % (37.0-47.0); Hemoglobin 12.3 g/dL (12.0-15.0); Immature Granulocyte Absolute 0.04 K/mm3 (0.00-0.031); Immature Granulocyte Percent A 0.5 % (0-0.5); Lymphocytes Absolute Auto 0.23 K/mm3 (0.9-3.2); Lymphocytes Percent Auto 3.1 % (18.3-44.2); Mean Corpuscular Hemoglobin 29.1 pg (26-34); Mean Corpuscular Volume 88.2 fl (80-100); Mean Platelet Volume 11.3 fl (7.4-10.4); Monocytes Absolute Auto 0.3 K/mm3 (0.1-0.6); Monocytes Percent Auto 3.8 % (2.6-8.5); Neutrophils Absolute Auto 6.9 K/mm3 (1.3-6.7); Neutrophils Percent Auto 92.3 % (45.5-73.1); Platelet Count Result 163 k/mm3 (150-375); Red Blood Count 4.23 M/mm3 (4.2-5.4); Red Cell Distribution Width 14.6 % (11.5-14.5); White Blood Count 7.5 K/mm3 (4.5-10.0)
[2022-01-25 05:26] LABS: Partial Thromboplastin Time 107.2 SECONDS (22.3-36.8)
[2022-01-25 05:36] LABS: Platelet Estimate Adequate (Adequate)
[2022-01-25 05:37] LABS: Acanthocytes 3+ (NORMAL); Schistocytes None Seen (NORMAL)
[2022-01-25 06:09] LABS: Alanine Aminotransferase 130 U/L (6-35); Albumin Level 2.8 g/dL (3.5-5.1); Alkaline Phosphatase 70 U/L (38-126); Anion Gap 14 mmol/L (8-16); Aspartate Amino Transferase 318 U/L (14-36); Bilirubin,Total 0.9 mg/dL (0.2-1.3); Blood Urea Nitrogen 31 mg/dL (7-17); Calcium 7.3 mg/dL (8.4-10.2); Carbon Dioxide 16 mmol/L (22-30); Chloride 116 mmol/L (98-107); Estimated CRCL calculation 49 ml/min; Estimated Glomerular Filt Rate > 60; Glucose 152 mg/dL (65-110); Magnesium 2.1 mg/dL (1.6-2.3); Potassium 3.2 mmol/L (3.4-5.0); Sodium 146 mmol/L (137-145)
[2022-01-25 06:39] LABS: Creatine Kinase 9244 U/L (30-135)
[2022-01-25 06:46] LABS: Total Triiodothyronine (T3) 1.98 NG/ML (0.97-1.69)
[2022-01-25 07:53] LABS: Glucose Point of Care 154 mg/dl (65-105)
[2022-01-25 08:45] LABS: INR 1.1; Prothrombin Time 14.2 Seconds (11.1-14.7)
[2022-01-25] MEDS: FUROSEMIDE INJ 40 MG/4 ML VIAL IV PUSH (09:34)
[2022-01-25] MEDS: HEPARIN SOD/D5W 100 UNITS/ML 25,000 UNITS/250 ML BAG 7 UNITS IV CONT (09:35)
[2022-01-25] MEDS: REMDESIVIR 200 MG/NS 250 ML 200 MG/250 ML BAG 250 MG IVPB (10:06)
--- NOTE | 2022-01-25 10:34 | PM.PNCARD ---
Progress Note: A&P Assessment and Plan (1) Atrial flutter with rapid ventricular response: Code(s): I48.92 - Unspecified atrial flutter Status: Acute Assessment and Plan: Back in sinus rhythm at this time. No p.o. meds right now due to aspiration risk - If patient goes back into RVR, then would do Amiodarone drip. If patient could tolerate oral meds, then would prefer starting Metoprolol. Continue Heparin drip for anticoagulation Echocardiogram 01/24 shows hyperdynamic function with LVEF >70, no significant valvular disease. (2) Elevated troponin: Code(s): R77.8 - Other specified abnormalities of plasma proteins Status: Acute Assessment and Plan: Minimally elevated and flat. In the setting of atrial flutter with RVR, rhabdo, COVID-19+. Does not appear to be ACS. Echocardiogram 01/24 shows hyperdynamic function with LVEF >70, no significant valvular disease, no regional wall motion abnormalities appreciated. (3) History of permanent cardiac pacemaker placement: Code(s): Z95.0 - Presence of cardiac pacemaker Status: Acute Assessment and Plan: Has a Biotronik device, interrogation order placed. Subjective Date/time seen: 01/25/22 10:34 Cardiology follow up for atrial fibrillation No acute events overnight. Had some AF with RVR overnight but back in sinus rhythm now. Review of Systems Review of Systems: ROS unobtainable: Yes unobtainable due to mental status Exam Const: General: no acute distress HENMT: Mouth: Yes dry mucous membranes Neck: Neck: no JVD Resp: Auscultation: diminished lung sounds Cardio: Rate: regular rate Rhythm: regular rhythm Heart sounds: no murmurs Skin: General skin exam: normal color Neuro: Other: Answers some questions, but does not answer other questions. Extrem: General: no edema Objective Data Vital Signs Vital Signs: Vital Signs - 24 hr 01/24/22 11:00 01/24/22 11:02 01/24/22 12:31 Temperature 38.0 C H Pulse Rate 117 H 115 H 111 H Respiratory Rate 27 H 26 H Blood Pressure 98/57 L 98/57 L 108/47 L Pulse Oximetry 93 94 Oxygen Delivery Oxygen Flow Rate Fraction of Inspired Oxygen 01/24/22 13:00 01/24/22 13:39 01/24/22 15:00 Temperature 37.1 C Pulse Rate 103 H 117 H 102 H Respiratory Rate 26 H 33 H 24 H Blood Pressure 97/56 L 114/52 L 101/64 Pulse Oximetry 97 93 94 Oxygen Delivery Oxygen Flow Rate Fraction of Inspired Oxygen 01/24/22 15:15 01/24/22 15:16 01/24/22 16:25 Temperature 38.1 C H 37.4 C Pulse Rate 92 97 Respiratory Rate 25 H 22 H 24 H Blood Pressure 112/65 107/47 L Pulse Oximetry 93 97 Oxygen Delivery Oxygen Flow Rate Fraction of Inspired Oxygen 01/24/22 17:07 01/24/22 17:09 01/24/22 16:20 Temperature Pulse Rate 108 H 108 H Respiratory Rate 29 H Blood Pressure Pulse Oximetry 98 98 97 Oxygen Delivery BiPAP BiPAP Nasal Cannula Oxygen Flow Rate 6 Fraction of Inspired Oxygen 45 01/24/22 18:00 01/24/22 18:41 01/24/22 20:00 Temperature 37.6 C H Pulse Rate 100 114 H 115 H Respiratory Rate 22 H Blood Pressure 103/60 110/48 L Pulse Oximetry 95 Oxygen Delivery Oxygen Flow Rate Fraction of Inspired Oxygen 01/24/22 20:00 01/24/22 20:00 01/24/22 22:00 Temperature Pulse Rate 112 H 118 H Respiratory Rate Blood Pressure Pulse Oximetry 98 Oxygen Delivery Nasal Cannula Oxygen Flow Rate 6 Fraction of Inspired Oxygen 01/24/22 22:55 01/24/22 23:11 01/25/22 00:14 Temperature 37.8 C H Pulse Rate 125 H 120 H 116 H Respiratory Rate 22 H 31 H Blood Pressure 114/69 Pulse Oximetry 99 97 Oxygen Delivery BiPAP Oxygen Flow Rate Fraction of Inspired Oxygen 01/25/22 00:15 01/25/22 00:00 01/25/22 00:00 Temperature Pulse Rate 120 H Respiratory Rate Blood Pressure Pulse Oximetry 97 98 Oxygen Delivery BiPAP Nasal Cannula Oxygen Flow Rate 6 Fraction of Inspired O
[2022-01-25 12:12] LABS: Glucose Point of Care 173 mg/dl (65-105)
[2022-01-25 12:36] LABS: Partial Thromboplastin Time 90.6 SECONDS (22.3-36.8)
--- NOTE | 2022-01-25 15:13 | PM.IMPN ---
Progress Note: A&P Assessment and Plan (1) COVID-19: Code(s): U07.1 - COVID-19 Status: Acute Assessment and Plan: admit to IMU supportive care consider adding antibacterial COVID 01/25/2022 interval history: today patient is little more awake, still unable to provide review of symptoms or history, patient is positive for COVID-19 on 01/24 started on dexamethasone were not unable to start remdesivir as patient AST was 10 times higher than normal, today patient AST extended down and started the patient on remdesivir will monitor, upon arrival patient was found to atrial flutter and was started on Cardizem drip, patient rate is trending down seen by senior bioinformatics scientist, unable to start oral medication as patient is still somnolent unable to participate and swallow evaluation and further recommendation to follow, patient was found down by caregivers, not know how long patient was down however has developed rhabdomyolysis rhabdomyolysis upon arrival her CK level were above 8000 patient will vigorously hydrate emergency depart and was given 7 L of the fluid, today her CK level does slightly higher 9244, patient shortness of breath patient was given IV Lasix 40 mg time and will monitor. patient remains clinically stable. (2) Fall: Code(s): W19.XXXA - Unspecified fall, initial encounter Status: Acute Assessment and Plan: bed rest (3) Rhabdomyolysis: Code(s): M62.82 - Rhabdomyolysis Status: Acute Assessment and Plan: IV fluids continue to monitor (4) Non-ST elevated myocardial infarction: Code(s): I21.4 - Non-ST elevation (NSTEMI) myocardial infarction Status: Acute Assessment and Plan: patient on heparin drip continue to monitor cardiology consult echocardiogram in a.m. trend troponins (5) KALEN (acute kidney injury): Code(s): N17.9 - Acute kidney failure, unspecified Status: Acute Assessment and Plan: likely to be pre renal azotemia receiving IV fluids continue to monitor (6) Atrial fibrillation with RVR: Code(s): I48.91 - Unspecified atrial fibrillation Status: Acute Assessment and Plan: on diltiazem drip continue to monitor (7) GERD (gastroesophageal reflux disease): Code(s): K21.9 - Gastro-esophageal reflux disease without esophagitis Status: Acute Assessment and Plan: PPI as needed Subjective Date/time seen: 01/25/22 15:13 01/25/2022 interval history: today patient is little more awake, still unable to provide review of symptoms or history, patient is positive for COVID-19 on 01/24 started on dexamethasone were not unable to start remdesivir as patient AST was 10 times higher than normal, today patient AST extended down and started the patient on remdesivir will monitor, upon arrival patient was found to atrial flutter and was started on Cardizem drip, patient rate is trending down seen by senior bioinformatics scientist, unable to start oral medication as patient is still somnolent unable to participate and swallow evaluation and further recommendation to follow, patient was found down by caregivers, not know how long patient was down however has developed rhabdomyolysis rhabdomyolysis upon arrival her CK level were above 8000 patient will vigorously hydrate emergency depart and was given 7 L of the fluid, today her CK level does slightly higher 9244, patient shortness of breath patient was given IV Lasix 40 mg time and will monitor. patient remains clinically stable. Review of Systems Review of Systems: ROS unobtainable: Yes unobtainable due to mental status ( Obtundation, lethargy) Exam Narrative: Patient is comfortable, NAD HEENT: eyes are clear and none icteric LUNGS: poor respiratory effort with rales and rhonchi HEART: RR S1S2 ABD: distended Lower extremities: no edema SKIN: nonjaundiced Neuro: grossly intact. Objective Data Vital Signs Vital Signs: Vital Signs - 24
[2022-01-25] MEDS: dilTIAZem 100 MG/100 ML 100 MG/100 ML BAG IV CONT (15:14)
[2022-01-25] MEDS: cefTRIAXone 2 GM in SODIUM CHLORIDE 0.9% IV 100 ML 200 ML IVPB (15:15)
[2022-01-25 16:44] LABS: Glucose Point of Care 214 mg/dl (65-105)
[2022-01-25 21:46] LABS: Glucose Point of Care 217 mg/dl (65-105)
[2022-01-26] VITALS (21 sets, daily range): BP systolic 123–151; BP diastolic 56–68; PULSE 84–110; RESP 18–28; TEMP 36.2–37.3; O2SAT 92–100
[2022-01-26 05:33] LABS: Hematocrit 40.5 % (37.0-47.0); Mean Corpuscular HGB Conc 32.1 g/dl (32-36); Mean Corpuscular Hemoglobin 28.8 pg (26-34); Mean Corpuscular Volume 89.8 fl (80-100); Mean Platelet Volume 11.2 fl (7.4-10.4); Platelet Count Result 174 k/mm3 (150-375); Red Blood Count 4.51 M/mm3 (4.2-5.4); White Blood Count 12.3 K/mm3 (4.5-10.0)
[2022-01-26 05:38] LABS: Partial Thromboplastin Time 85.6 SECONDS (22.3-36.8)
[2022-01-26 07:02] LABS: Hepatitis B Surface Antigen Negative (Negative)
[2022-01-26 07:08] LABS: HAV RESULT Negative (Negative); Hepatitis B Core IgM Result Negative (Negative)
[2022-01-26 07:19] LABS: Hepatitis C Virus Antibody Negative (Negative)
[2022-01-26 07:22] LABS: Alanine Aminotransferase 133 U/L (6-35); Alkaline Phosphatase 74 U/L (38-126); Anion Gap 16 mmol/L (8-16); Aspartate Amino Transferase 205 U/L (14-36); Bilirubin,Total 0.9 mg/dL (0.2-1.3); Blood Urea Nitrogen 39 mg/dL (7-17); Calcium 7.7 mg/dL (8.4-10.2); Carbon Dioxide 17 mmol/L (22-30); Chloride 119 mmol/L (98-107); Creatine Kinase 4518 U/L (30-135); Estimated CRCL calculation 47 ml/min; Estimated Glomerular Filt Rate > 60; Glucose 190 mg/dL (65-110); Magnesium 2.7 mg/dL (1.6-2.3); Potassium 3.5 mmol/L (3.4-5.0); Sodium 152 mmol/L (137-145)
[2022-01-26 08:27] LABS: Glucose Point of Care 194 mg/dl (65-105)
[2022-01-26] MEDS: FUROSEMIDE INJ 40 MG/4 ML VIAL IV PUSH (08:41)
[2022-01-26] MEDS: ACETAMINOPHEN 325 MG TABLET 650 MG PO (08:51)
--- NOTE | 2022-01-26 10:09 | PCSTNOTE ---
Modified barium swallow study. Patient demonstrated swallowing functional abilities within normal limits for all consistencies. No penetration or aspiration noted. Recommendation: soft and bite sized diet due to patient's weak condition and thin liquids. No speech therapy recommended. Thank you for the referral of this patient.
--- NOTE | 2022-01-26 10:17 | PCNFU ---
Nutrition Follow-Up Complete: Increased protein energy needs related to wound healing as evidenced by wound report. Goal: Tolerate PO intake - progressing Pt current nutrition is Soft and bite sized, heart healthy, thin liquids. Nutrition recommendation: Ensure Enlive at meals Last recorded weight is 68.5 kg. Bowel Motility: 2 ml recorded Labs Reviewed: Alb 3.0, Na 152 (up from 146 yesterday), BUN 39 Meds Noted: dexamethasone, remdesivir, Lasix, heparin, diltiazem Skin: Back: DTI. Sacrum: Unstageable. R heel: DTI Additional Notes: Had modified barium swallow which showed no dysphagia. Soft and bite sized diet because of weakness. Spoke to RN who said pt ate some applesauce with him this morning. Will try Ensure and monitor. To add Hollis when intakes improve. Covid+ isolation. Monitor swallowing, intakes, wounds, weight, plan of care. Follow up in 3 days
[2022-01-26] MEDS: REMDESIVIR 100 MG/NS 250 ML 100 MG/250 ML BAG 250 MG IVPB (10:50)
[2022-01-26] MEDS: dilTIAZem 100 MG/100 ML 100 MG/100 ML BAG IV CONT (10:59)
--- NOTE | 2022-01-26 11:41 | PCSTNOTE ---
Bedside swallow evaluation. Patient cooperative but distractible and unable to provide reliable information about her prior level. Patient showed no signs of aspiration with pureed consistency by spoon. Patient coughed after 3 ml spoonful of water and also after uncontrolled water bolus from cup and again after uncontrolled water bolus from straw. Patient states she is thirsty and wants to drink a lot of liquids. Recommendation: mildly thickened liquids (level 2) and soft and bite sized diet (level 6). Patient needs assistance during meals as she has difficulty feeding herself. Modified barium swallow study recommended. Thank you for the referral of this patient.
[2022-01-26 12:18] LABS: Glucose Point of Care 347 mg/dl (65-105)
[2022-01-26] MEDS: INSULIN ASPART (*BKC) 100 UNITS/ML SUB-Q ×2 (12:32→17:17)
--- NOTE | 2022-01-26 15:16 | PM.IMPN ---
Progress Note: A&P Assessment and Plan (1) COVID-19: Code(s): U07.1 - COVID-19 Status: Acute Assessment and Plan: admit to IMU supportive care consider adding antibacterial COVID 01/26/2022 interval history: today patient is little more awake, still unable to provide review of symptoms or history, patient was positive for COVID-19 on 01/24 started on dexamethasone were not unable to start remdesivir as patient AST was 10 times higher than normal, on 01/25 patient AST trended down and started the patient on remdesivir will monitor, upon arrival patient was found to have atrial flutter and was started on Cardizem drip, patient rate is trending down seen by herb counselor, on 01/24 unable to start oral medication as patient is still somnolent unable to participate and swallow evaluation and further recommendation to follow, today patient is more alert and oriented able to swallow will start the patient on Eliquis, patient was found down by caregivers, not know how long patient was down however has developed rhabdomyolysis upon arrival her CK level were above 8000 patient will vigorously hydrate emergency depart and was given 7 L of the fluid, today her CK level is trending down to 4518, patient shortness of breath patient was given IV Lasix 40 mg and patient is diuresing well, will monitor. patient remains clinically stable. (2) Fall: Code(s): W19.XXXA - Unspecified fall, initial encounter Status: Acute Assessment and Plan: bed rest (3) Rhabdomyolysis: Code(s): M62.82 - Rhabdomyolysis Status: Acute Assessment and Plan: IV fluids continue to monitor (4) Non-ST elevated myocardial infarction: Code(s): I21.4 - Non-ST elevation (NSTEMI) myocardial infarction Status: Acute Assessment and Plan: patient on heparin drip continue to monitor cardiology consult echocardiogram in a.m. trend troponins (5) KALEN (acute kidney injury): Code(s): N17.9 - Acute kidney failure, unspecified Status: Acute Assessment and Plan: likely to be pre renal azotemia receiving IV fluids continue to monitor (6) Atrial fibrillation with RVR: Code(s): I48.91 - Unspecified atrial fibrillation Status: Acute Assessment and Plan: on diltiazem drip continue to monitor (7) GERD (gastroesophageal reflux disease): Code(s): K21.9 - Gastro-esophageal reflux disease without esophagitis Status: Acute Assessment and Plan: PPI as needed Subjective Date/time seen: 01/26/22 15:16 01/26/2022 interval history: today patient is little more awake, still unable to provide review of symptoms or history, patient was positive for COVID-19 on 01/24 started on dexamethasone were not unable to start remdesivir as patient AST was 10 times higher than normal, on 01/25 patient AST trended down and started the patient on remdesivir will monitor, upon arrival patient was found to have atrial flutter and was started on Cardizem drip, patient rate is trending down seen by herb counselor, on 01/24 unable to start oral medication as patient is still somnolent unable to participate and swallow evaluation and further recommendation to follow, today patient is more alert and oriented able to swallow will start the patient on Eliquis, patient was found down by caregivers, not know how long patient was down however has developed rhabdomyolysis upon arrival her CK level were above 8000 patient will vigorously hydrate emergency depart and was given 7 L of the fluid, today her CK level is trending down to 4518, patient shortness of breath patient was given IV Lasix 40 mg and patient is diuresing well, will monitor. patient remains clinically stable. Exam Narrative: Patient is comfortable, NAD HEENT: eyes are clear and none icteric LUNGS: poor respiratory effort with rales and rhonchi HEART: RR S1S2 ABD: distended Lower extremities: no edema
[2022-01-26 16:37] LABS: Glucose Point of Care 321 mg/dl (65-105)
[2022-01-26] MEDS: cefTRIAXone 2 GM in SODIUM CHLORIDE 0.9% IV 100 ML 200 ML IVPB (17:17)
[2022-01-26 20:38] LABS: Glucose Point of Care 444 mg/dl (65-105)
[2022-01-26] MEDS: APIXABAN 5 MG TABLET 10 MG PO (21:56)
[2022-01-26] MEDS: INSULIN ASPART (*BKC) 100 UNITS/ML 8 UNITS SUB-Q (21:57)
--- NOTE | 2022-01-26 23:07 | PCRCNOTE ---
pt on home BIPAP 6 liters bleed in. pt stated he does not need help.
[2022-01-27] VITALS (17 sets, daily range): BP systolic 115–134; BP diastolic 54–92; PULSE 77–105; RESP 18–38; TEMP 36.2–37.3; O2SAT 91–97
[2022-01-27 00:23] LABS: Glucose Point of Care 429 mg/dl (65-105)
[2022-01-27 00:27] LABS: Hematocrit 37.2 % (37.0-47.0); Hemoglobin 12.4 g/dL (12.0-15.0); Mean Corpuscular HGB Conc 33.3 g/dl (32-36); Mean Corpuscular Volume 87.1 fl (80-100); Mean Platelet Volume 11.2 fl (7.4-10.4); Platelet Count Result 188 k/mm3 (150-375); Red Blood Count 4.27 M/mm3 (4.2-5.4); Red Cell Distribution Width 15.1 % (11.5-14.5); White Blood Count 15.7 K/mm3 (4.5-10.0)
[2022-01-27 02:29] LABS: Glucose Point of Care 374 mg/dl (65-105)
[2022-01-27] MEDS: INSULIN GLARGINE (*BKC) 100 UNITS/ML 20 UNITS SUB-Q ×3 (02:46→17:20)
[2022-01-27] MEDS: INSULIN ASPART (*BKC) 100 UNITS/ML 6 UNITS SUB-Q (02:46)
[2022-01-27 05:21] LABS: Hematocrit 36.1 % (37.0-47.0); Mean Corpuscular HGB Conc 33.2 g/dl (32-36); Mean Corpuscular Hemoglobin 28.3 pg (26-34); Mean Corpuscular Volume 85.1 fl (80-100); Mean Platelet Volume 11.5 fl (7.4-10.4); Platelet Count Result 193 k/mm3 (150-375); Red Blood Count 4.24 M/mm3 (4.2-5.4); White Blood Count 16.9 K/mm3 (4.5-10.0)
[2022-01-27 05:29] LABS: INR 1.5; Prothrombin Time 17.8 Seconds (11.1-14.7)
[2022-01-27 05:52] LABS: Alanine Aminotransferase 121 U/L (6-35); Albumin Level 2.9 g/dL (3.5-5.1); Alkaline Phosphatase 98 U/L (38-126); Anion Gap 14 mmol/L (8-16); Aspartate Amino Transferase 137 U/L (14-36); Bilirubin,Total 0.7 mg/dL (0.2-1.3); Blood Urea Nitrogen 40 mg/dL (7-17); Calcium 7.5 mg/dL (8.4-10.2); Carbon Dioxide 25 mmol/L (22-30); Chloride 115 mmol/L (98-107); Creatine Kinase 1225 U/L (30-135); Estimated CRCL calculation 59 ml/min; Estimated Glomerular Filt Rate > 60; Glucose 297 mg/dL (65-110); Magnesium 2.3 mg/dL (1.6-2.3); Potassium 3.1 mmol/L (3.4-5.0); Sodium 154 mmol/L (137-145)
[2022-01-27] MEDS: dilTIAZem 100 MG/100 ML 100 MG/100 ML BAG IV CONT (06:04)
[2022-01-27 07:45] LABS: Glucose Point of Care 253 mg/dl (65-105)
[2022-01-27] MEDS: APIXABAN 5 MG TABLET 10 MG PO ×2 (09:30→21:16)
[2022-01-27] MEDS: FUROSEMIDE INJ 40 MG/4 ML VIAL IV PUSH (09:30)
[2022-01-27] MEDS: INSULIN ASPART (*BKC) 100 UNITS/ML SUB-Q ×2 (09:31→12:24)
[2022-01-27] MEDS: REMDESIVIR 100 MG/NS 250 ML 100 MG/250 ML BAG 250 MG IVPB (10:33)
[2022-01-27] MEDS: PANTOPRAZOLE SOD SESQUIHYDRATE 20 MG TAB PO (12:25)
[2022-01-27] MEDS: OMEGA 3 POLYUNSAT FATTY ACIDS 1 GM CAP 2 GM PO ×2 (12:26→17:24)
[2022-01-27] MEDS: lisinopriL 10 MG TABLET PO (12:26)
[2022-01-27 13:19] LABS: Glucose Point of Care 375 mg/dl (65-105)
[2022-01-27] MEDS: cefTRIAXone 2 GM in SODIUM CHLORIDE 0.9% IV 100 ML 200 ML IVPB (15:47)
--- NOTE | 2022-01-27 16:11 | PM.IMPN ---
Progress Note: A&P Assessment and Plan (1) COVID-19: Code(s): U07.1 - COVID-19 Status: Acute Assessment and Plan: admit to IMU supportive care consider adding antibacterial COVID 01/27/2022 interval history: today patient is little more awake, now able to provide review of symptoms is feeling much better compared to when she arrived, patient was positive for COVID-19 on 01/24 started on dexamethasone were not unable to start remdesivir as patient AST was 10 times higher than normal, on 01/25 patient AST trended down and started the patient on remdesivir will monitor, upon arrival patient was found to have atrial flutter and was started on Cardizem drip, patient rate was trending down seen by title lawyer, on 01/24 unable to start oral medication as patient is still somnolent unable to participate and swallow evaluation and further recommendation to follow, today patient is more alert and oriented able to swallow started the patient on Eliquis, patient was found down by caregivers, not know how long patient was down however has developed rhabdomyolysis upon arrival her CK level were above 8000 patient was vigorously hydrated emergency depart and was given 7 L of the fluid, today her CK level is trending down to 1225, patient shortness of breath patient was given IV Lasix 40 mg and patient is diuresing well, will monitor. patient remains clinically stable. will have a PT OT evaluate the patient patient will benefit going to rehab (2) Fall: Code(s): W19.XXXA - Unspecified fall, initial encounter Status: Acute Assessment and Plan: bed rest (3) Rhabdomyolysis: Code(s): M62.82 - Rhabdomyolysis Status: Acute Assessment and Plan: IV fluids continue to monitor (4) Non-ST elevated myocardial infarction: Code(s): I21.4 - Non-ST elevation (NSTEMI) myocardial infarction Status: Acute Assessment and Plan: patient on heparin drip continue to monitor cardiology consult echocardiogram in a.m. trend troponins (5) KALEN (acute kidney injury): Code(s): N17.9 - Acute kidney failure, unspecified Status: Acute Assessment and Plan: likely to be pre renal azotemia receiving IV fluids continue to monitor (6) Atrial fibrillation with RVR: Code(s): I48.91 - Unspecified atrial fibrillation Status: Acute Assessment and Plan: on diltiazem drip continue to monitor (7) GERD (gastroesophageal reflux disease): Code(s): K21.9 - Gastro-esophageal reflux disease without esophagitis Status: Acute Assessment and Plan: PPI as needed Subjective Date/time seen: 01/27/22 16:11 01/27/2022 interval history: today patient is little more awake, now able to provide review of symptoms is feeling much better compared to when she arrived, patient was positive for COVID-19 on 01/24 started on dexamethasone were not unable to start remdesivir as patient AST was 10 times higher than normal, on 01/25 patient AST trended down and started the patient on remdesivir will monitor, upon arrival patient was found to have atrial flutter and was started on Cardizem drip, patient rate was trending down seen by title lawyer, on 01/24 unable to start oral medication as patient is still somnolent unable to participate and swallow evaluation and further recommendation to follow, today patient is more alert and oriented able to swallow started the patient on Eliquis, patient was found down by caregivers, not know how long patient was down however has developed rhabdomyolysis upon arrival her CK level were above 8000 patient was vigorously hydrated emergency depart and was given 7 L of the fluid, today her CK level is trending down to 1225, patient shortness of breath patient was given IV Lasix 40 mg and patient is diuresing well, will monitor. patient remains clinically stable. will have a PT OT evaluate the patient patient will bene
[2022-01-27 16:33] LABS: Glucose Point of Care 470 mg/dl (65-105)
[2022-01-27] MEDS: INSULIN ASPART (*BKC) 100 UNITS/ML 10 UNITS SUB-Q (17:21)
[2022-01-27] MEDS: ATORVASTATIN 40 MG TABLET PO (17:26)
[2022-01-27] MEDS: ACETAMINOPHEN 325 MG TABLET 650 MG PO (18:17)
[2022-01-27 20:25] LABS: Glucose Point of Care 458 mg/dl (65-105)
[2022-01-27] MEDS: INSULIN ASPART (*BKC) 100 UNITS/ML 12 UNITS SUB-Q (21:16)
[2022-01-27] MEDS: EZETIMIBE 10 MG TABLET PO (21:16)
[2022-01-28] VITALS (18 sets, daily range): BP systolic 95–123; BP diastolic 50–72; PULSE 71–110; RESP 14–36; TEMP 36.4–37; O2SAT 92–96
[2022-01-28] MEDS: dilTIAZem 100 MG/100 ML 100 MG/100 ML BAG IV CONT (00:28)
--- NOTE | 2022-01-28 01:03 | PC.NURSE ---
Daylight Savings Time For Daylight Savings Time Ending in the Fall - Clocks are moved back. For Daylight Savings Time Beginning in the Spring - Clocks are moved ahead. For [facility], the time of change occurs at 0200 hrs. Time is taken from the food and beverage server. This entry on the patient's chart recognizes the change in time reflected during documentation. Example: 2 entries for vital signs may be charted for 0200 hrs.
[2022-01-28 01:06] LABS: Glucose Point of Care 323 mg/dl (65-105)
[2022-01-28 05:38] LABS: Hematocrit 40.4 % (37.0-47.0); Hemoglobin 13.2 g/dL (12.0-15.0); Mean Corpuscular HGB Conc 32.7 g/dl (32-36); Mean Corpuscular Hemoglobin 28.8 pg (26-34); Mean Corpuscular Volume 88.2 fl (80-100); Mean Platelet Volume 11.9 fl (7.4-10.4); Platelet Count Result 210 k/mm3 (150-375); Red Blood Count 4.58 M/mm3 (4.2-5.4); Red Cell Distribution Width 14.9 % (11.5-14.5); White Blood Count 15.3 K/mm3 (4.5-10.0)
[2022-01-28 05:44] LABS: INR 1.7; Prothrombin Time 19.6 Seconds (11.1-14.7)
[2022-01-28 05:45] LABS: Partial Thromboplastin Time 30.2 SECONDS (22.3-36.8)
[2022-01-28 05:48] LABS: Alanine Aminotransferase 115 U/L (6-35); Alkaline Phosphatase 92 U/L (38-126); Anion Gap 13 mmol/L (8-16); Aspartate Amino Transferase 74 U/L (14-36); Bilirubin,Total 0.9 mg/dL (0.2-1.3); Blood Urea Nitrogen 46 mg/dL (7-17); Calcium 7.8 mg/dL (8.4-10.2); Carbon Dioxide 32 mmol/L (22-30); Chloride 108 mmol/L (98-107); Creatine Kinase 564 U/L (30-135); Estimated CRCL calculation 68 ml/min; Estimated Glomerular Filt Rate > 60; Glucose 245 mg/dL (65-110); Magnesium 2.3 mg/dL (1.6-2.3); Potassium 3.5 mmol/L (3.4-5.0); Sodium 153 mmol/L (137-145)
[2022-01-28 08:27] LABS: Glucose Point of Care 246 mg/dl (65-105)
[2022-01-28] MEDS: OMEGA 3 POLYUNSAT FATTY ACIDS 1 GM CAP 2 GM PO ×2 (09:21→17:02)
[2022-01-28] MEDS: PANTOPRAZOLE SOD SESQUIHYDRATE 20 MG TAB PO (09:21)
[2022-01-28] MEDS: EMPAGLIFLOZIN 10 MG TABLET PO (09:21)
[2022-01-28] MEDS: APIXABAN 5 MG TABLET 10 MG PO (09:21)
[2022-01-28] MEDS: INSULIN GLARGINE (*BKC) 100 UNITS/ML 20 UNITS SUB-Q ×2 (09:22→12:07)
[2022-01-28] MEDS: FUROSEMIDE INJ 40 MG/4 ML VIAL IV PUSH (09:22)
[2022-01-28] MEDS: lisinopriL 10 MG TABLET PO (09:22)
[2022-01-28] MEDS: INSULIN ASPART (*BKC) 100 UNITS/ML SUB-Q ×2 (09:23→17:01)
[2022-01-28] MEDS: REMDESIVIR 100 MG/NS 250 ML 100 MG/250 ML BAG 250 MG IVPB (09:30)
--- NOTE | 2022-01-28 10:05 | PM.IMPN ---
Progress Note: A&P Assessment and Plan (1) COVID-19: Code(s): U07.1 - COVID-19 Status: Acute Assessment and Plan: admit to IMU supportive care consider adding antibacterial COVID 01/27/2022 interval history: today patient is little more awake, now able to provide review of symptoms is feeling much better compared to when she arrived, patient was positive for COVID-19 on 01/24 started on dexamethasone were not unable to start remdesivir as patient AST was 10 times higher than normal, on 01/25 patient AST trended down and started the patient on remdesivir will monitor, upon arrival patient was found to have atrial flutter and was started on Cardizem drip, patient rate was trending down seen by contact finger assembler, on 01/24 unable to start oral medication as patient is still somnolent unable to participate and swallow evaluation and further recommendation to follow, today patient is more alert and oriented able to swallow started the patient on Eliquis, patient was found down by caregivers, not know how long patient was down however has developed rhabdomyolysis upon arrival her CK level were above 8000 patient was vigorously hydrated emergency depart and was given 7 L of the fluid, today her CK level is trending down to 1225, patient shortness of breath patient was given IV Lasix 40 mg and patient is diuresing well, will monitor. patient remains clinically stable. will have a PT OT evaluate the patient patient will benefit going to rehab January 28 continue remdesivir (day 4/5) and dexamethasone and wean oxygen as tolerated (7L); ALT 115 (2) Atrial fibrillation with RVR: Code(s): I48.91 - Unspecified atrial fibrillation Status: Acute Assessment and Plan: Resolved January 28. Stop diltiazem drip January 28 receiving apixaban 10 mg twice a day so will lower dose to 5 mg twice daily for cardioembolic prophylaxis (3) Hypernatremia: Code(s): E87.0 - Hyperosmolality and hypernatremia Status: Acute Assessment and Plan: 01/28 153 Stop furosemide 01 28 Increased p.o. free water intake if she passes modified barium swallow 01 28 (4) Parkinsonism: Code(s): G20 - Parkinson's disease Status: Acute Assessment and Plan: Right-sided course rest tremor consistent with parkinsonism and patient also has relatively mask face ease and bradykinesia Pending modified barium swallow would consider therapeutic trial of carbidopa levodopa 25-100 tid (5) Diabetes mellitus: Code(s): E11.9 - Type 2 diabetes mellitus without complications Status: Acute Assessment and Plan: January 28 fasting blood sugar 246. Trending down somewhat. Continue sliding scale. Increase Lantus from 20-26. (6) Rhabdomyolysis: Code(s): M62.82 - Rhabdomyolysis Status: Acute Assessment and Plan: Resolved (7) Fall: Code(s): W19.XXXA - Unspecified fall, initial encounter Status: Acute Assessment and Plan: PT OT (8) Non-ST elevated myocardial infarction: Code(s): I21.4 - Non-ST elevation (NSTEMI) myocardial infarction Status: Acute Assessment and Plan: Likely related to a KI hypoxemia and AFib RVR with demand spill of troponins No acute coronary syndrome (9) KALEN (acute kidney injury): Code(s): N17.9 - Acute kidney failure, unspecified Status: Acute Assessment and Plan: Resolved (10) GERD (gastroesophageal reflux disease): Code(s): K21.9 - Gastro-esophageal reflux disease without esophagitis Status: Acute Assessment and Plan: PPI as needed Subjective Date/time seen: 01/28/22 10:05 Chronic pain in left hip relieved by Tylenol. Otherwise no complaints of chest pain abdominal pain or other musculoskeletal pain. Denied GI or issues. Short of breath with conversation okay at rest on high-flow oxygen. Denied abnormal bleeding. Hungry. Going for modified barium swallow this morning. Rev
--- NOTE | 2022-01-28 11:38 | PCSTNOTE ---
Patient seen for modified barium swallow study (MBSS). Overall deconditioned and fatigued. Has been receiving soft and bite sized diet (level 6) and mildly thickened liquids (level 2). Per nursing she prefers to get her nutritional needs met with liquid diet supplements such as Ensure. During MBSS today patient was given trials of thin liquid by spoon, straw, and cup. Also given pureed texture by spoon and 3ml amount of mixed texture (fruit cocktail in juice). No aspiration was observed. Penetration in airway above the level of the vocal folds occurred with all consistencies. This was not aspirated but eventually ejected. Due to patient's weakened condition she is at risk of aspiration. Recommendation is pureed diet (level 4) with mildly thickened liquids (level 2) and adherence to strict swallowing precautions as documented in swallowing precautions recommendations section of chart. No further speech therapy recommended at this time. Thank you for the referral of this patient.
[2022-01-28 11:52] LABS: Glucose Point of Care 473 mg/dl (65-105)
[2022-01-28] MEDS: INSULIN ASPART (*BKC) 100 UNITS/ML 12 UNITS SUB-Q ×2 (12:08→18:47)
[2022-01-28] MEDS: cefTRIAXone 2 GM in SODIUM CHLORIDE 0.9% IV 100 ML 200 ML IVPB (15:55)
[2022-01-28 16:29] LABS: Glucose Point of Care 443 mg/dl (65-105)
[2022-01-28] MEDS: ATORVASTATIN 40 MG TABLET PO (17:03)
[2022-01-28 20:15] LABS: Glucose Point of Care 404 mg/dl (65-105)
[2022-01-28] MEDS: APIXABAN 5 MG TABLET PO (20:20)
[2022-01-28] MEDS: EZETIMIBE 10 MG TABLET PO (20:20)
[2022-01-28] MEDS: ACETAMINOPHEN 325 MG TABLET 650 MG PO (20:40)
[2022-01-29] VITALS (15 sets, daily range): BP systolic 94–140; BP diastolic 58–89; PULSE 80–138; RESP 20–30; TEMP 36.4–36.9; O2SAT 92–100
[2022-01-29] MEDS: traMADol HCL (*CRX) 50 MG TABLET PO (00:44)
[2022-01-29 04:56] LABS: Hemoglobin 13.2 g/dL (12.0-15.0); Mean Corpuscular HGB Conc 32.2 g/dl (32-36); Mean Corpuscular Hemoglobin 28.9 pg (26-34); Mean Corpuscular Volume 89.7 fl (80-100); Mean Platelet Volume 11.9 fl (7.4-10.4); Platelet Count Result 231 k/mm3 (150-375); Red Blood Count 4.57 M/mm3 (4.2-5.4); Red Cell Distribution Width 14.8 % (11.5-14.5); White Blood Count 18.1 K/mm3 (4.5-10.0)
[2022-01-29 05:04] LABS: INR 1.4
[2022-01-29 05:05] LABS: Alanine Aminotransferase 101 U/L (6-35); Alkaline Phosphatase 96 U/L (38-126); Anion Gap 14 mmol/L (8-16); Aspartate Amino Transferase 49 U/L (14-36); Bilirubin,Total 0.8 mg/dL (0.2-1.3); Blood Urea Nitrogen 53 mg/dL (7-17); Carbon Dioxide 35 mmol/L (22-30); Chloride 103 mmol/L (98-107); Creatine Kinase 294 U/L (30-135); Estimated CRCL calculation 68 ml/min; Estimated Glomerular Filt Rate > 60; Glucose 179 mg/dL (65-110); Magnesium 2.4 mg/dL (1.6-2.3); Sodium 152 mmol/L (137-145)
[2022-01-29 07:41] LABS: Glucose Point of Care 190 mg/dl (65-105)
[2022-01-29 07:47] LABS: Toxigenic C. Diff NEGATIVE (NEGATIVE)
[2022-01-29] MEDS: OMEGA 3 POLYUNSAT FATTY ACIDS 1 GM CAP 2 GM PO ×2 (09:14→16:17)
[2022-01-29] MEDS: ACETAMINOPHEN 325 MG TABLET 650 MG PO (09:14)
[2022-01-29] MEDS: INSULIN GLARGINE (*BKC) 100 UNITS/ML 40 UNITS SUB-Q (09:15)
[2022-01-29] MEDS: PANTOPRAZOLE SOD SESQUIHYDRATE 20 MG TAB PO (09:15)
[2022-01-29] MEDS: APIXABAN 5 MG TABLET PO ×2 (09:15→20:32)
[2022-01-29] MEDS: EMPAGLIFLOZIN 10 MG TABLET PO (09:15)
[2022-01-29] MEDS: REMDESIVIR 100 MG/NS 250 ML 100 MG/250 ML BAG 250 MG IVPB (09:47)
[2022-01-29] MEDS: DEXTROSE 5% 1,000 ML 1,000 ML 100 ML IV CONT ×2 (10:51→20:32)
[2022-01-29 11:22] LABS: Glucose Point of Care 349 mg/dl (65-105)
[2022-01-29] MEDS: INSULIN ASPART (*BKC) 100 UNITS/ML SUB-Q ×3 (12:15→23:32)
--- NOTE | 2022-01-29 13:25 | PCNFU ---
Nutrition Follow-Up Complete: Increased protein energy needs related to wound healing as evidenced by wound report. Goal: Tolerate PO intake - Not meeting goal, average intakes <50% Pt current nutrition is Puree diet with nectar thick liquids; Ensure Enlive TID. Nutrition recommendation: Add nutritional ice cream to lunch and dinner Last recorded weight is 68.4 kg. Bowel Motility: +3 BM 01/29/22 Labs Reviewed: Alb 3.0, Na 152, BUN 53, Creat 0.6, Glu 190-349 Meds Noted: dEXAMETHASONE, novolog, remdesivir,, Lasix, heparin Skin: DTI: Back; DTI: r HEEL; Unstageable: sacrum Additional Notes: MBSS completed with findings of airway penetration, but not aspiration. Downgraded to puree with nectar thick liquids. This is likely due to weakness. Pt does not eat puree, per RN she is drinking Ensure and trying pudding for lunch. Will order nutritional ice cream BID and monitor. Plan to order Hollis to address wound healing when intakes improve. Monitor swallowing, intakes, wounds, weight, plan of care. Follow up in 3 days
--- NOTE | 2022-01-29 15:56 | PM.IMPN ---
Progress Note: A&P Assessment and Plan (1) COVID-19: Code(s): U07.1 - COVID-19 Status: Acute Assessment and Plan: finished remdesivir 5 day course continue dexamethasone and wean oxygen as tolerated (2) Atrial fibrillation with RVR: Code(s): I48.91 - Unspecified atrial fibrillation Status: Acute Assessment and Plan: Resolved January 28. Stop diltiazem drip receiving apixaban (3) Hypernatremia: Code(s): E87.0 - Hyperosmolality and hypernatremia Status: Acute Assessment and Plan: will start her on D5W at 100 cc/hour. Monitor BMP q.6 hours (4) Diabetes mellitus: Code(s): E11.9 - Type 2 diabetes mellitus without complications Status: Acute Assessment and Plan: Continue sliding scale and Lantus (5) Rhabdomyolysis: Code(s): M62.82 - Rhabdomyolysis Status: Acute Assessment and Plan: Resolved (6) Fall: Code(s): W19.XXXA - Unspecified fall, initial encounter Status: Acute Assessment and Plan: PT OT (7) KALEN (acute kidney injury): Code(s): N17.9 - Acute kidney failure, unspecified Status: Acute Assessment and Plan: Resolved (8) GERD (gastroesophageal reflux disease): Code(s): K21.9 - Gastro-esophageal reflux disease without esophagitis Status: Acute Assessment and Plan: PPI as needed Subjective Date/time seen: 01/29/22 15:56 no complaint at this time Review of Systems Review of Systems: All systems reviewed & are unremarkable except as noted in HPI and below Exam Narrative: Alert and oriented to person place and time. Sclera nonicteric pharyngeal mucosa moist Neck without JVD Chest coarse breath sounds throughout Heart regular rate, normal S1-S2 Extremities without edema Abdomen soft nontender good bowel sounds Musculoskeletal no gross deformity to visual inspection Neurologic cranial nerves intact to visual inspection and symmetric, coarse tremor right upper and lower extremities at rest Objective Data Vital Signs Vital Signs: Vital Signs - 24 hr 01/28/22 16:00 01/28/22 16:00 01/28/22 16:00 Temperature 97.7 F Pulse Rate 95 102 H Respiratory Rate 24 H Blood Pressure 119/59 L Pulse Oximetry 95 94 Oxygen Delivery Nasal Cannula Oxygen Flow Rate 7 01/28/22 18:05 01/28/22 20:00 01/28/22 20:00 Temperature 97.8 F Pulse Rate 95 95 Respiratory Rate 22 H Blood Pressure 119/50 L Pulse Oximetry 96 96 Oxygen Delivery Nasal Cannula Oxygen Flow Rate 6 01/28/22 20:00 01/28/22 22:00 01/28/22 23:52 Temperature 98.4 F Pulse Rate 99 110 H Respiratory Rate 24 H Blood Pressure 122/62 Pulse Oximetry 93 93 Oxygen Delivery High Flow Therapy with Na Oxygen Flow Rate 6 01/29/22 00:00 01/29/22 00:00 01/29/22 01:28 Temperature Pulse Rate 104 H 88 Respiratory Rate Blood Pressure Pulse Oximetry 93 Oxygen Delivery High Flow Therapy with Na Oxygen Flow Rate 7 01/28/22 22:30 01/28/22 23:01 01/29/22 04:00 Temperature Pulse Rate 80 89 84 Respiratory Rate 36 H Blood Pressure Pulse Oximetry 94 94 Oxygen Delivery BiPAP Nasal Cannula Oxygen Flow Rate 6 01/29/22 04:00 01/29/22 04:00 01/29/22 06:00 Temperature 98.1 F Pulse Rate 88 90 Respiratory Rate 20 Blood Pressure 127/68 Pulse Oximetry 94 98 Oxygen Delivery High Flow Therapy with Na Oxygen Flow Rate 7 01/29/22 08:00 01/29/22 11:21 01/29/22 08:00 Temperature 97.8 F 98 F Pulse Rate 108 H 90 Respiratory Rate 30 H 24 H Blood Pressure 94/78 L 124/80 Pulse Oximetry 94 96 99 Oxygen Delivery High Flow Therapy with Na Oxygen Flow Rate 7 01/29/22 12:00 01/29/22 08:00 01/29/22 12:00 Temperature Pulse Rate 104 H 80 Respiratory Rate Blood Pressure Pulse Oximetry 100 Oxygen Delivery High Flow Therapy with Na Oxygen Flow Rate 6 01/29/22 10:00 01/29/22 14:00 [facility]
[2022-01-29 16:07] LABS: Anion Gap 9 mmol/L (8-16); Blood Urea Nitrogen 48 mg/dL (7-17); Calcium 7.3 mg/dL (8.4-10.2); Carbon Dioxide 31 mmol/L (22-30); Chloride 101 mmol/L (98-107); Estimated CRCL calculation 68 ml/min; Estimated Glomerular Filt Rate > 60; Glucose 406 mg/dL (65-110); Potassium 4.4 mmol/L (3.4-5.0); Sodium 141 mmol/L (137-145)
[2022-01-29] MEDS: polyethylene glycoL 3350 17 GM POWD.PACK PO (16:17)
[2022-01-29 16:41] LABS: Glucose Point of Care 351 mg/dl (65-105)
[2022-01-29] MEDS: ATORVASTATIN 40 MG TABLET PO (18:19)
[2022-01-29] MEDS: WATER FOR IRRIGATION, STERILE 1,000 ML BOTTLE 1000 ML (18:34)
--- NOTE | 2022-01-29 19:31 | PHAR ---
PT'S HOME MED OZEMPIC (SEMAGLUTIDE) 2 MG/1.5 ML INJ VERIFIED BY PHARMACY
[2022-01-29] MEDS: EZETIMIBE 10 MG TABLET PO (20:32)
[2022-01-29 20:44] LABS: Glucose Point of Care 463 mg/dl (65-105)
[2022-01-29] MEDS: INSULIN ASPART (*BKC) 100 UNITS/ML 10 UNITS SUB-Q (21:07)
[2022-01-29 22:38] LABS: Anion Gap 10 mmol/L (8-16); Blood Urea Nitrogen 43 mg/dL (7-17); Calcium 7.3 mg/dL (8.4-10.2); Carbon Dioxide 27 mmol/L (22-30); Chloride 102 mmol/L (98-107); Estimated CRCL calculation 80 ml/min; Estimated Glomerular Filt Rate > 60; Glucose 419 mg/dL (65-110); Sodium 139 mmol/L (137-145)
[2022-01-29 23:19] LABS: Glucose Point of Care 323 mg/dl (65-105)
[2022-01-30] VITALS (12 sets, daily range): BP systolic 110–143; BP diastolic 52–75; PULSE 73–93; RESP 17–20; TEMP 36.7–37.2; O2SAT 82–97
[2022-01-30 04:59] LABS: Hematocrit 35.4 % (37.0-47.0); Hemoglobin 11.7 g/dL (12.0-15.0); Mean Corpuscular HGB Conc 33.1 g/dl (32-36); Mean Corpuscular Hemoglobin 28.7 pg (26-34); Mean Corpuscular Volume 86.8 fl (80-100); Mean Platelet Volume 12.1 fl (7.4-10.4); Platelet Count Result 211 k/mm3 (150-375); Red Blood Count 4.08 M/mm3 (4.2-5.4); Red Cell Distribution Width 14.5 % (11.5-14.5)
[2022-01-30 05:11] LABS: Alanine Aminotransferase 80 U/L (6-35); Albumin Level 2.7 g/dL (3.5-5.1); Alkaline Phosphatase 88 U/L (38-126); Anion Gap 6 mmol/L (8-16); Aspartate Amino Transferase 35 U/L (14-36); Bilirubin,Total 0.9 mg/dL (0.2-1.3); Blood Urea Nitrogen 43 mg/dL (7-17); Calcium 7.2 mg/dL (8.4-10.2); Carbon Dioxide 29 mmol/L (22-30); Chloride 103 mmol/L (98-107); Creatine Kinase 143 U/L (30-135); Estimated CRCL calculation 80 ml/min; Estimated Glomerular Filt Rate > 60; Glucose 173 mg/dL (65-110); Magnesium 2.4 mg/dL (1.6-2.3); Sodium 138 mmol/L (137-145)
[2022-01-30 08:09] LABS: Glucose Point of Care 162 mg/dl (65-105)
[2022-01-30] MEDS: polyethylene glycoL 3350 17 GM POWD.PACK PO (08:34)
[2022-01-30] MEDS: lisinopriL 10 MG TABLET PO (08:36)
[2022-01-30] MEDS: EMPAGLIFLOZIN 10 MG TABLET PO (08:36)
[2022-01-30] MEDS: APIXABAN 5 MG TABLET PO ×2 (08:36→20:31)
[2022-01-30] MEDS: PANTOPRAZOLE SOD SESQUIHYDRATE 20 MG TAB PO (08:36)
[2022-01-30] MEDS: OMEGA 3 POLYUNSAT FATTY ACIDS 1 GM CAP 2 GM PO ×2 (08:36→17:07)
[2022-01-30] MEDS: INSULIN GLARGINE (*BKC) 100 UNITS/ML 40 UNITS SUB-Q (08:40)
[2022-01-30 10:45] LABS: Anion Gap 11 mmol/L (8-16); Blood Urea Nitrogen 43 mg/dL (7-17); Calcium 7.3 mg/dL (8.4-10.2); Carbon Dioxide 30 mmol/L (22-30); Chloride 99 mmol/L (98-107); Estimated CRCL calculation 68 ml/min; Estimated Glomerular Filt Rate > 60; Glucose 249 mg/dL (65-110); Potassium 4.1 mmol/L (3.4-5.0); Sodium 140 mmol/L (137-145)
--- NOTE | 2022-01-30 11:23 | PM.IMPN ---
Progress Note: A&P Assessment and Plan (1) COVID-19: Code(s): U07.1 - COVID-19 Status: Acute Assessment and Plan: finished remdesivir 5 day course continue dexamethasone and wean oxygen as tolerated (2) Atrial fibrillation with RVR: Code(s): I48.91 - Unspecified atrial fibrillation Status: Acute Assessment and Plan: Resolved diltiazem drip discontinued on apixaban (3) Hypernatremia: Code(s): E87.0 - Hyperosmolality and hypernatremia Status: Acute Assessment and Plan: resolved. Discontinue D5W. Monitor BMP daily (4) Diabetes mellitus: Code(s): E11.9 - Type 2 diabetes mellitus without complications Status: Acute Assessment and Plan: Continue sliding scale and Lantus (5) Rhabdomyolysis: Code(s): M62.82 - Rhabdomyolysis Status: Acute Assessment and Plan: Resolved (6) Fall: Code(s): W19.XXXA - Unspecified fall, initial encounter Status: Acute Assessment and Plan: PT OT pending placement to rehab (7) KALEN (acute kidney injury): Code(s): N17.9 - Acute kidney failure, unspecified Status: Acute Assessment and Plan: Resolved Subjective Date/time seen: 01/30/22 11:23 doing okay. Still very weak. Requiring 3-4 L oxygen at times Review of Systems Review of Systems: All systems reviewed & are unremarkable except as noted in HPI and below Exam Narrative: Alert and oriented to person place and time. Sclera nonicteric pharyngeal mucosa moist Neck without JVD Chest coarse breath sounds throughout Heart regular rate, normal S1-S2 Extremities without edema Abdomen soft nontender good bowel sounds Musculoskeletal resting tremor Neurologic cranial nerves intact to visual inspection and symmetric, Objective Data Vital Signs Vital Signs: Vital Signs - 24 hr 01/29/22 12:00 01/29/22 12:00 01/29/22 14:00 Temperature Pulse Rate 80 95 Respiratory Rate Blood Pressure Pulse Oximetry 100 Oxygen Delivery High Flow Therapy with Na Oxygen Flow Rate 6 01/29/22 16:00 01/29/22 16:00 01/29/22 18:00 Temperature 98.3 F Pulse Rate 80 89 Respiratory Rate 28 H Blood Pressure 119/58 L Pulse Oximetry 96 97 Oxygen Delivery High Flow Therapy with Na Oxygen Flow Rate 5 01/29/22 20:00 01/29/22 20:00 01/29/22 20:00 Temperature 98.5 F Pulse Rate 91 83 Respiratory Rate 20 Blood Pressure 140/63 Pulse Oximetry 93 98 Oxygen Delivery High Flow Nasal Cannula Oxygen Flow Rate 4 01/29/22 22:00 01/29/22 22:27 01/29/22 23:59 Temperature 97.6 F Pulse Rate 81 91 Respiratory Rate 20 Blood Pressure 137/89 Pulse Oximetry 96 92 Oxygen Delivery High Flow Nasal Cannula Oxygen Flow Rate 3 01/30/22 00:00 01/30/22 00:00 01/30/22 02:00 Temperature Pulse Rate 78 81 Respiratory Rate Blood Pressure Pulse Oximetry 92 Oxygen Delivery High Flow Nasal Cannula Oxygen Flow Rate 4 01/30/22 04:00 01/30/22 04:00 01/30/22 05:07 Temperature Pulse Rate 86 Respiratory Rate Blood Pressure Pulse Oximetry 96 82 L Oxygen Delivery High Flow Nasal Cannula Nasal Cannula Oxygen Flow Rate 1 3 01/30/22 04:00 01/30/22 06:00 01/30/22 06:00 Temperature 98.1 F Pulse Rate 81 73 Respiratory Rate 20 Blood Pressure 143/75 H Pulse Oximetry 94 97 Oxygen Delivery Nasal Cannula Oxygen Flow Rate 2 01/30/22 08:12 01/30/22 08:00 Temperature 98.6 F Pulse Rate 83 Respiratory Rate 18 Blood Pressure 138/63 Pulse Oximetry 92 92 Oxygen Delivery High Flow Nasal Cannula Oxygen Flow Rate 4 Intake/Output Intake/Output: Intake & Output 01/28/22 01/28/22 01/29/22 01/30/22 00:59 23:59 23:59 23:59 Intake Total 2175 / 2175 200 / 200 Output Total 2425 / 2425 1350 / 1350 Balance -250 / -250 -1150 / -1150 Meds/Results Medications: Active Medications Generic Name Dose Route St
[2022-01-30 11:53] LABS: Glucose Point of Care 320 mg/dl (65-105)
[2022-01-30] MEDS: INSULIN ASPART (*BKC) 100 UNITS/ML SUB-Q ×2 (12:20→17:07)
[2022-01-30 16:20] LABS: Glucose Point of Care 357 mg/dl (65-105)
[2022-01-30 16:36] LABS: Anion Gap 11 mmol/L (8-16); Blood Urea Nitrogen 38 mg/dL (7-17); Calcium 7.4 mg/dL (8.4-10.2); Carbon Dioxide 27 mmol/L (22-30); Chloride 101 mmol/L (98-107); Estimated CRCL calculation 80 ml/min; Estimated Glomerular Filt Rate > 60; Glucose 334 mg/dL (65-110); Potassium 4.4 mmol/L (3.4-5.0); Sodium 139 mmol/L (137-145)
[2022-01-30] MEDS: ATORVASTATIN 40 MG TABLET PO (17:07)
[2022-01-30] MEDS: EZETIMIBE 10 MG TABLET PO (20:31)
[2022-01-30 21:05] LABS: Glucose Point of Care 216 mg/dl (65-105)
[2022-01-30] MEDS: INSULIN ASPART (*BKC) 100 UNITS/ML 10 UNITS SUB-Q (23:12)
[2022-01-31] VITALS (8 sets, daily range): BP systolic 98–139; BP diastolic 51–69; PULSE 76–98; RESP 18–28; TEMP 36.1–37.1; O2SAT 91–96
[2022-01-31 00:28] LABS: Anion Gap 9 mmol/L (8-16); Blood Urea Nitrogen 39 mg/dL (7-17); Calcium 7.4 mg/dL (8.4-10.2); Carbon Dioxide 27 mmol/L (22-30); Chloride 102 mmol/L (98-107); Estimated CRCL calculation 80 ml/min; Estimated Glomerular Filt Rate > 60; Glucose 220 mg/dL (65-110); Potassium 3.9 mmol/L (3.4-5.0); Sodium 138 mmol/L (137-145)
[2022-01-31 05:16] LABS: Hematocrit 38.7 % (37.0-47.0); Hemoglobin 12.7 g/dL (12.0-15.0); Mean Corpuscular HGB Conc 32.8 g/dl (32-36); Mean Corpuscular Hemoglobin 29.3 pg (26-34); Mean Corpuscular Volume 89.4 fl (80-100); Mean Platelet Volume 12.1 fl (7.4-10.4); Platelet Count Result 246 k/mm3 (150-375); Red Blood Count 4.33 M/mm3 (4.2-5.4); Red Cell Distribution Width 14.1 % (11.5-14.5); White Blood Count 24.3 K/mm3 (4.5-10.0)
[2022-01-31 05:37] LABS: Alanine Aminotransferase 69 U/L (6-35); Albumin Level 2.8 g/dL (3.5-5.1); Alkaline Phosphatase 90 U/L (38-126); Anion Gap 8 mmol/L (8-16); Aspartate Amino Transferase 29 U/L (14-36); Blood Urea Nitrogen 40 mg/dL (7-17); Calcium 7.4 mg/dL (8.4-10.2); Carbon Dioxide 28 mmol/L (22-30); Chloride 102 mmol/L (98-107); Creatine Kinase 107 U/L (30-135); Estimated CRCL calculation 80 ml/min; Estimated Glomerular Filt Rate > 60; Glucose 120 mg/dL (65-110); Magnesium 2.2 mg/dL (1.6-2.3); Potassium 4.2 mmol/L (3.4-5.0); Sodium 138 mmol/L (137-145)
[2022-01-31 08:39] LABS: Glucose Point of Care 116 mg/dl (65-105)
[2022-01-31] MEDS: APIXABAN 5 MG TABLET PO ×2 (11:49→20:42)
[2022-01-31] MEDS: OMEGA 3 POLYUNSAT FATTY ACIDS 1 GM CAP 2 GM PO ×2 (11:50→17:36)
[2022-01-31] MEDS: lisinopriL 10 MG TABLET PO (11:50)
[2022-01-31] MEDS: EMPAGLIFLOZIN 10 MG TABLET PO (11:50)
[2022-01-31] MEDS: INSULIN GLARGINE (*BKC) 100 UNITS/ML 40 UNITS SUB-Q (11:50)
[2022-01-31] MEDS: PANTOPRAZOLE SOD SESQUIHYDRATE 20 MG TAB PO (11:51)
[2022-01-31 11:52] LABS: Glucose Point of Care 194 mg/dl (65-105)
--- NOTE | 2022-01-31 14:35 | PC.NURSE ---
This patient, Shawnee Mon, was received from IMU bed 202 on 01/31/22 at 1415. Patient/family oriented to unit policies and routines
[2022-01-31 16:55] LABS: Glucose Point of Care 325 mg/dl (65-105)
[2022-01-31] MEDS: INSULIN ASPART (*BKC) 100 UNITS/ML SUB-Q (17:20)
[2022-01-31] MEDS: ATORVASTATIN 40 MG TABLET PO (17:36)
--- NOTE | 2022-01-31 17:42 | PM.IMPN ---
Progress Note: A&P Assessment and Plan (1) COVID-19: Code(s): U07.1 - COVID-19 Status: Acute Assessment and Plan: Pt completed remdesivir 5 day course Continue dexamethasone and wean oxygen as tolerated Pt still needing 3 liters of oxygen (2) Atrial fibrillation with RVR: Code(s): I48.91 - Unspecified atrial fibrillation Status: Acute Assessment and Plan: Resolved diltiazem drip discontinued on apixaban (3) Hypernatremia: Code(s): E87.0 - Hyperosmolality and hypernatremia Status: Acute Assessment and Plan: Monitor BMP daily (4) Diabetes mellitus: Code(s): E11.9 - Type 2 diabetes mellitus without complications Status: Acute Assessment and Plan: Continue sliding scale and Lantus (5) Rhabdomyolysis: Code(s): M62.82 - Rhabdomyolysis Status: Acute Assessment and Plan: Resolved (6) Fall: Code(s): W19.XXXA - Unspecified fall, initial encounter Status: Acute Assessment and Plan: PT OT pending placement to rehab (7) KALEN (acute kidney injury): Code(s): N17.9 - Acute kidney failure, unspecified Status: Acute Assessment and Plan: Resolved Subjective Date/time seen: 01/31/22 17:42 71-year-old female with past medical history significant for hypertension, type 2 diabetes mellitus, GERD, dyslipidemia.? Patient was found down after a well checkup can not give history she was brought to emergency room for evaluation last time H she was seen and her normal was Saturday. preliminary workup was significant for elevated CPK at 14,000, troponin 0.689, creatinine 1.5 BUN 54 a COVID test was positive. Pt still recovering has been on remdesivir for 5 days but still needing oxygen. Review of Systems Review of Systems: SOB and cough Exam Narrative: Alert and oriented to person place and time. pt needing 3 liters of oxygen Chest with expiratory wheeze bilterally Heart regular rate, normal S1-S2 Extremities without edema Abdomen soft nontender good bowel sounds Objective Data Vital Signs Vital Signs: Vital Signs - 24 hr 01/30/22 20:00 01/30/22 21:25 01/31/22 04:00 Temperature 37.2 C 36.4 C L Pulse Rate 82 76 Respiratory Rate 20 20 Blood Pressure 135/62 139/66 Pulse Oximetry 94 97 95 Oxygen Delivery Nasal Cannula Oxygen Flow Rate 3 01/31/22 08:00 01/31/22 11:54 01/31/22 08:00 Temperature 36.1 C L 36.4 C Pulse Rate 91 94 Respiratory Rate 24 H 28 H Blood Pressure 121/69 110/51 L Pulse Oximetry 96 93 94 Oxygen Delivery Nasal Cannula Oxygen Flow Rate 3 Intake/Output Intake/Output: Intake & Output 01/28/22 01/29/22 01/30/22 01/31/22 23:59 23:59 23:59 23:59 Intake Total 2175 1000 1442 Output Total 8649 3150 1925 Pzwwshc -796 -2150 -483 Meds/Results Medications: Active Medications Generic Name Dose Route Start Last Admin Trade Name Freq PRN Reason Stop Dose Admin Acetaminophen 650 mg 01/24/22 01:33 01/29/22 09:14 Acetaminophen 325 Mg Tablet PO 650 mg Q4H PRN Administration Mild Pain (1-3) or Fever Apixaban 5 mg 01/28/22 21:00 01/31/22 11:49 Apixaban 5 Mg Tablet PO 5 mg Q12HR ROSALES Administration Atorvastatin Calcium 40 mg 01/27/22 18:00 01/31/22 17:36 Atorvastatin 40 Mg Tablet PO 40 mg QPM ROSALES Administration Dexamethasone Sodium Phosphate 6 mg 01/25/22 09:00 01/31/22 11:50 Dexamethasone Sod Phos Inj 10 Mg/Ml 1 Ml Vial IV PUSH 02/02/22 09:01 6 mg DAILY ROSALES Administration Dextrose 12.5 gm 01/24/22 12:28 Dextrose 50% 25 Gm/50 Ml Syringe IV PUSH PRN PRN Hypoglycemia Protocol Docusate Sodium 100 mg 01/29/22 14:37 Docusate Sodium 100 Mg Capsule PO Q12H PRN Constipation Ezetimibe 10 mg 01/27/22 21:00 01/30/22 20:31 Ezetimibe 10 Mg Tablet PO 10 mg HS ROSALES Administration Empagliflozin 10 mg 01/28/22 09:00 01/31/22 11:50 Empagliflozin 10 Mg
[2022-01-31] MEDS: EZETIMIBE 10 MG TABLET PO (20:42)
[2022-01-31 21:02] LABS: Glucose Point of Care 313 mg/dl (65-105)
[2022-01-31] MEDS: ACETAMINOPHEN 325 MG TABLET 650 MG PO (23:08)
[2022-02-01] MEDS: ACETAMINOPHEN 325 MG TABLET 650 MG PO ×2 (03:21→20:51)
[2022-02-01 04:00] VITALS: BP 133/69; PULSE 79; RESP 20; TEMP 36.6; O2SAT 95
[2022-02-01 06:45] LABS: Hematocrit 35.7 % (37.0-47.0); Hemoglobin 11.5 g/dL (12.0-15.0); Mean Corpuscular HGB Conc 32.2 g/dl (32-36); Mean Corpuscular Hemoglobin 28.7 pg (26-34); Mean Platelet Volume 12.1 fl (7.4-10.4); Platelet Count Result 257 k/mm3 (150-375); Red Blood Count 4.01 M/mm3 (4.2-5.4); Red Cell Distribution Width 14.1 % (11.5-14.5); White Blood Count 18.9 K/mm3 (4.5-10.0)
[2022-02-01 06:58] LABS: Alanine Aminotransferase 54 U/L (6-35); Albumin Level 2.6 g/dL (3.5-5.1); Alkaline Phosphatase 83 U/L (38-126); Anion Gap 5 mmol/L (8-16); Aspartate Amino Transferase 30 U/L (14-36); Blood Urea Nitrogen 40 mg/dL (7-17); Carbon Dioxide 27 mmol/L (22-30); Chloride 101 mmol/L (98-107); Creatine Kinase 74 U/L (30-135); Estimated CRCL calculation 83 ml/min; Estimated Glomerular Filt Rate > 60; Glucose 132 mg/dL (65-110); Magnesium 2.1 mg/dL (1.6-2.3); Sodium 133 mmol/L (137-145)
[2022-02-01 07:48] LABS: Glucose Point of Care 121 mg/dl (65-105)
[2022-02-01 08:00] VITALS: BP 123/63; PULSE 76; RESP 14; TEMP 36.2; O2SAT 94; O2SAT 97
[2022-02-01] MEDS: INSULIN GLARGINE (*BKC) 100 UNITS/ML 40 UNITS SUB-Q (10:14)
[2022-02-01] MEDS: APIXABAN 5 MG TABLET PO ×2 (10:17→20:22)
[2022-02-01] MEDS: lisinopriL 10 MG TABLET PO (10:18)
[2022-02-01] MEDS: EMPAGLIFLOZIN 10 MG TABLET PO (10:18)
[2022-02-01] MEDS: OMEGA 3 POLYUNSAT FATTY ACIDS 1 GM CAP 2 GM PO ×2 (10:18→17:16)
[2022-02-01] MEDS: PANTOPRAZOLE SOD SESQUIHYDRATE 20 MG TAB PO (10:19)
[2022-02-01] MEDS: polyethylene glycoL 3350 17 GM POWD.PACK PO (10:19)
--- NOTE | 2022-02-01 11:00 | PM.DS ---
DS: Admitting Diagnosis Discharge Date 02/01/2022 Admitting Diagnosis COVID infection, rhabdomyolysis DS: Summary Hospital Course Hospital Course: This is a 71-year-old female with past medical history significant for hypertension, type 2 diabetes mellitus, GERD, dyslipidemia.? Patient was found down after a well checkup can not give history she was brought to emergency room for evaluation last time H she was seen and her normal was Saturday. preliminary workup was significant for elevated CPK at 14,000, troponin 0.689, creatinine 1.5 BUN 54. COVID test was positive.? patient was started on IV remdesivir and dexamethasone. She was started on oxygen. She finished 5 day course of remdesivir. Her renal functions have improved. She still on oxygen. She had hyponatremia for which she was started on D5W which improved her sodium. Her sodium is normal at this time. CK is improved. PT and OT were consulted and patient is being discharged to rehab in stable condition. Time Spent with Patient Time attestation: Total time spent providing and/or coordinating discharge services: Exam Narrative: Alert and oriented to person place and time. pt needing 3 liters of oxygen Chest with expiratory wheeze bilterally Heart regular rate, normal S1-S2 Extremities without edema Abdomen soft nontender good bowel sounds DS: Data Data Completed and Pending Labs on day of discharge: Labs from last 24 hours 02/01/22 02/01/22 02/01/22 07:42 06:21 06:21 WBC 18.9 H RBC 4.01 L Hgb 11.5 L Hct 35.7 L MCV 89.0 MCH 28.7 MCHC 32.2 RDW 14.1 Plt Count 257 MPV 12.1 H Sodium 133 L Potassium 4.0 Chloride 101 Carbon Dioxide 27 Anion Gap 5 L BUN 40 H Creatinine 0.50 L Estim Creat Clear Calc 83 Estimated GFR > 60 Glucose 132 H POC Capillary Glucose 121 H Calcium 7.0 L Magnesium 2.1 Total Bilirubin 1.0 AST 30 ALT 54 H Alkaline Phosphatase 83 Total Creatine Kinase 74 Total Protein 6.0 L Albumin 2.6 L 01/31/22 01/31/22 01/31/22 20:45 16:52 11:49 WBC RBC Hgb Hct MCV MCH MCHC RDW Plt Count MPV Sodium Potassium Chloride Carbon Dioxide Anion Gap BUN Creatinine Estim Creat Clear Calc Estimated GFR Glucose POC Capillary Glucose 313 H 325 H 194 H Calcium Magnesium Total Bilirubin AST ALT Alkaline Phosphatase Total Creatine Kinase Total Protein Albumin Discharge Plan Discharge Consulting providers: Dayana Boo Discharging Clinician: Joe Hinton Anticipated Discharge Date/Time: 02/01/22 09:43 Patient Disposition: Inpatient Rehab Facility Activity: july shower Diet: heart healthy Patient Instructions: Heart Attack (DC), Acute Kidney Injury (DC), Wiley Catheter Placement and Care (DC), COVID-19 (Coronavirus Disease 2019) (DC) Stand Alone Forms: General Discharge Information Follow-up/Referrals: Hadley,ISAIAH Liu [Primary Care Provider] - Discharge Medications: New Eliquis 5 mg Tablet 5 mg PO Q12HR 30 Days Qty: 60 0RF Continued atorvastatin 40 mg Tablet 40 mg PO QPM metformin 500 mg Tablet 500 mg PO BIDWM ezetimibe 10 mg Tablet 10 mg PO HS insulin glargine [Basaglar KwikPen U-100 Insulin] 100 unit/mL (3 mL) Insulin Pen 40 unit SUBCUT DAILY Jardiance 10 mg Tablet 10 mg PO DAILY lisinopril 10 mg tablet 10 mg PO DAILY icosapent ethyl [Vascepa] 1 gram capsule 2 g PO BID Ozempic 0.25 mg or 0.5 mg(2 mg/1.5 mL) pen injector 0.25 mg SUBCUT WEEKLY Rx Instructions: Saturdays omeprazole 10 mg capsule,delayed release(DR/EC) 10 mg PO DAILY Date of admission: 01/24/22 01:34 Primary Care Provider: HadleyCoco Admitting Provider: Jose Osborne V. Attending physician on admission: Joe Hinton Condition: Serious
[2022-02-01 12:00] VITALS: BP 113/55; PULSE 89; RESP 18; TEMP 36.7; O2SAT 94
[2022-02-01 12:00] LABS: Glucose Point of Care 208 mg/dl (65-105)
[2022-02-01] MEDS: INSULIN ASPART (*BKC) 100 UNITS/ML SUB-Q ×2 (12:39→17:14)
--- NOTE | 2022-02-01 13:56 | PC.NURSE ---
This nurse spoke with patient's son-Pedro at 13:55. Informed him that pt. would be discharged today and transferred to [facility]
--- NOTE | 2022-02-01 14:39 | PC.NURSE ---
This nurse called SNF facility ([facility]) and spoke with nurse Amita Morrissey, report given.
[2022-02-01 15:48] VITALS: BP 121/70; PULSE 92; RESP 16; TEMP 36.6; O2SAT 96
[2022-02-01 17:00] LABS: Glucose Point of Care 284 mg/dl (65-105)
[2022-02-01] MEDS: ATORVASTATIN 40 MG TABLET PO (17:16)
[2022-02-01 19:12] VITALS: BP 123/68; PULSE 89; RESP 14; TEMP 37.4; O2SAT 94
[2022-02-01] MEDS: EZETIMIBE 10 MG TABLET PO (20:22)
[2022-02-01 23:07] LABS: Glucose Point of Care 255 mg/dl (65-105)
== END 2022-02-01 22:00 | DRG 177 ==
LOC: ANHED 01-24 02:13 → ANHIMU 01-24 03:08 → ANH3MEDSUR 01-31 14:01
PROVIDERS: Family Medicine; Internal Medicine; Nurse Practitioner; Physician Assistant; Admitting Provider Internal Medicine; Emergency Provider Emergency Medicine; PCP Physician Assistant; Visit Provider Hospitalist
DX: U07.1 COVID-19 (principal); J12.82 Pneumonia due to coronavirus disease 2019; E87.0 Hyperosmolality and hypernatremia; M62.82 Rhabdomyolysis; N17.9 Acute kidney failure, unspecified; I48.92 Unspecified atrial flutter; I48.91 Unspecified atrial fibrillation; K21.9 Gastro-esophageal reflux disease without esophagitis; E11.9 Type 2 diabetes mellitus without complications; I10 Essential (primary) hypertension; G20 Parkinson's disease; E78.5 Hyperlipidemia, unspecified; Z79.84 Long term (current) use of oral hypoglycemic drugs; Z79.4 Long term (current) use of insulin; Z79.52 Long term (current) use of systemic steroids; Z79.899 Other long term (current) drug therapy; Z88.1 Allergy status to other antibiotic agents; Z88.8 Allergy status to other drugs, medicaments and biological substances; Z91.040 Latex allergy status; Z95.0 Presence of cardiac pacemaker; R77.8 Other specified abnormalities of plasma proteins; W19.XXXA Unspecified fall, initial encounter
CPT/HCPCS: 36415; 36600; 51701; 51702; 70450; 71045; 73502; 74018; 80048; 80053; 80074; 81001; 82274; 82550; 82805; 82948; 83605; 83735; 84439; 84443; 84480; 84484; 85025; 85027; 85610; 85730; 86140; 87040; 87493; 87502; 92610; 92611; 93005; 93306; 94002; 94003; 96360; 96361; 97110; 97162; 97165; 97530; 97535; 99291; A9270; J0131; J0248; J0456; J0696; J1100; J1644; J1815; J1940; J7030; J7070; U0003; U0005